=== PATIENT | female | born 1970 | race Two or more races ===

== ENCOUNTER 2023-06-04 22:03 | Emergency (ER) | payer OTHER, SELFPAY ==
[2023-06-04 22:10] VITALS: BP 144/77; PULSE 64; TEMP 36.8; O2SAT 100; BMI 42.8
--- NOTE | 2023-06-04 22:23 | ED.ABDPAIN1 ---
HPI - Abdominal Pain General Chief Complaint: Abdominal Pain Stated Complaint: ABD PAIN Time Seen by Provider: 06/04/23 22:17 Source: patient Mode of arrival: walk-in Limitations: no limitations History of Present Illness HPI narrative: 52-year-old female presents for right groin pain which wraps around to her flank area. It started about 5 hours ago while she was sitting. No injury or unusual activity. She is never had any pain like this before and it came on suddenly. No history of kidney stones. No constipation or diarrhea or fever. The pain is moderate to severe and continuous. Related Data Home Medications ?Medication ?Instructions ?Recorded ?Confirmed atorvastatin 20 mg tablet 20 mg PO DAILY 06/04/23 06/04/23 cyclobenzaprine 10 mg tablet 10 mg PO PRN sleep 06/04/23 ibuprofen 800 mg tablet 800 mg PO PRN pain 06/04/23 semaglutide 0.25 mg or 0.5 mg (2 mg subcut 06/04/23 mg/3 mL) subcutaneous pen injector (Ozempic) sitagliptin phosphate 50 1 tab PO BIDWM 06/04/23 06/04/23 mg-metformin 1,000 mg tablet (Janumet) Previous Rx's ?Medication ?Instructions ?Recorded hydrocodone 5 mg-acetaminophen 325 1 tab PO Q6H PRN pain #20 tabs 06/04/23 mg tablet ondansetron 4 mg disintegrating 4 mg PO Q6H PRN nausea and 06/04/23 tablet vomiting #20 tabs tamsulosin 0.4 mg capsule (Flomax) 0.4 mg PO DAILY #7 caps 06/04/23 Allergies Allergy/AdvReac Type Severity Reaction Status Date / Time No Known Drug Allergies Allergy Verified 06/04/23 22:10 Review of Systems ROS Narrative A ten point review of systems is negative except as noted above. Exam Narrative Exam Narrative: Nurses note and vital signs reviewed and patient is not hypoxic. General: The patient appears uncomfortable Skin: Warm, dry, no pallor noted. There is no rash noted. Head: Normocephalic, atraumatic Eye: Normal conjunctiva, no drainage Ears, Nose, Mouth, and Throat: oral mucosa is moist. Nares patent. Cardiovascular: Regular Rate and Rhythm Respiratory: Patient is in no distress, no accessory muscle use, lungs are clear to auscultation, no wheezing, rales or rhonchi Back: non-tender, no CVA tenderness bilaterally to percussion. GI: Soft and nondistended. Minimal tenderness in the right lower abdomen. Musculoskeletal: The patient has no evidence of calf tenderness, no pitting edema, symmetrical pulses noted bilaterally Neurological: A&O, normal speech Psychiatric: Cooperative Constitutional Vital Signs, click to edit/add: Last Vital Signs Temp 98.2 F 06/04/23 22:10 Pulse 64 06/04/23 22:10 Resp 18 06/04/23 22:10 BP 144/77 H 06/04/23 22:10 Pulse Ox 100 06/04/23 22:10 O2 Del Method Room Air 06/04/23 22:10 Course Vital Signs Vital signs: Vital Signs Temperature 98.2 F 06/04/23 22:10 Pulse Rate 64 06/04/23 22:10 Respiratory Rate 18 06/04/23 22:10 Blood Pressure 144/77 H 06/04/23 22:10 Pulse Oximetry 100 06/04/23 22:10 Oxygen Delivery Method Room Air 06/04/23 22:10 Temperature 98.2 F 06/04/23 22:10 Pulse Rate 64 06/04/23 22:10 Respiratory Rate 18 06/04/23 22:10 Blood Pressure 144/77 H 06/04/23 22:10 Pulse Oximetry 100 06/04/23 22:10 Oxygen Delivery Method Room Air 06/04/23 22:10 MDM - Abdominal Pain MDM Narrative Medical decision making narrative: CT scan shows a 4 mm kidney stone. It also shows an abnormality on her uterus, etiology uncertain. She is referred to gynecology for appropriate follow-up and family was instructed that she would need a follow-up ultrasound. She was given a urine strainer and prescribed [place] and Flomax and Zofran. Treatment diagnosis and follow-up were discussed thoroughly. Differential Diagnosis Differential diagnosis: Likely abdominal pain, acute appendicitis, calculus of kidney and constipation Lab Data Attestation: I reviewed the patient's lab results. Labs: Lab Results 06/04/23 Range/Units 22:20 WBC 8.5 (4.0-11.0) 10^3/uL RBC 4.34 (4.20-5.40) 10^6/uL Hgb 12.7 (12.0-16.0) g/dL Hct 39.0 (36.0-48.0) % MCV 89.9 (81.0-99.0) fL MCH 29.3 (26.7-34.0) pg MCHC 32.6 (29.9-35.2) g/dL RDW 13.8 (11.0-15.0) % Plt Count 274 (150-450) 10^3/uL MPV 11.2 (9.5-13.5) fL Neut % (Auto) 61.6 (43.0-75.0) % Lymph % (Auto) 29.5 (20.5-60.0) % Whitley % (Auto) 6.4 (1.7-12.0) % Eos % (Auto) 1.5 (0.9-7.0) % Baso % (Auto) 0.8 (0.2-2.0) % Neut # (Auto) 5.3 (1.4-6.5) 10^3/uL Lymph # (Auto) 2.5 (1.2-3.8) 10^3/uL Whitley # (Auto) 0.6 (0.3-0.8) 10^3/uL Eos # (Auto) 0.1 (0.0-0.7) 10^3/uL Baso # (Auto) 0.1 (0.0-0.1) 10^3/uL Abs Immat Gran (auto) 0.02 (0.00-0.03) 10^3/uL Imm/Tot Granulo (auto) 0.2 (0.0-0.5) % Sodium 140 (136-145) mmol/L Potassium 4.1 (3.5-5.1) mmol/L Chloride 105 (98-107) mmol/L Carbon Dioxide 23.1 (21.0-32.0) mmol/L Anion Gap 16.0 BUN 20.0 H (7.0-18.0) mg/dL Creatinine 0.74 (0.55-1.02) mg/dL Est GFR ( Amer) >60 (>=60) Est GFR (Non-Af Amer) >60 (>=60) BUN/Creatinine Ratio 27.0 Glucose 175 H (74-106) mg/dL Calcium 8.7 (8.5-10.1) mg/dL Urine Color Yellow (YELLOW) Urine Clarity Clear (CLEAR) Urine pH 5.5 (5.0-9.0) Ur Specific [place] >=1.030 A (1.005-1.025) Urine Protein Trace (NEG/TRACE) mg/dL Urine Glucose (UA) Negative (NEGATIVE) mg/dL Urine Ketones Negative (NEGATIVE) mg/dL Urine Occult Blood Large A (NEGATIVE) Urine Nitrite Negative (NEGATIVE) Urine Bilirubin Negative (NEGATIVE) Urine Urobilinogen 0.2 (0.2-1.0) EU/dL Ur Leukocyte Esterase Negative (NEGATIVE) Urine RBC 75-100 A (0-2) #/HPF Urine WBC 2-5 A (NONE SEEN) #/HPF Ur Squamous Epith Cells Moderate A (NONE/RARE) #/LPF Urine Crystals None seen (None Seen) #/HPF Amorphous Sediment Rare Urine Bacteria Trace A (NONE SEEN) #/HPF Urine Casts None seen (NONE SEEN) #/LPF Urine Mucus Small A (NONE SEEN) Urine Yeast Seen A (NONE SEEN) Ur Culture Indicated? Yes Imaging Data CT scan - abdomen: Radiologist's impression: ITS Impressions Abdomen/Pelvis CT 06/04/23 22:41 IMPRESSION: Mild right hydroureteronephrosis secondary to a 4 mm stone located at the right ureterovesical junction. A 6.4 x 5.3 cm oval solid mass at the right uterine wall/right adnexal region (image 116 series 3). Recommend pelvic sonogram and close Gynecology evaluation. Lobulated uterus is seen. Mild colonic diverticula without pericolonic inflammatory stranding. Cholelithiasis and/or biliary sludge. No evidence for acute appendicitis. The appendix is unremarkable. Electronically authenticated by: DUNG HARRIS Date: 06/04/2023 23:41 Discharge Plan Discharge Stand Alone Forms: Portal Instructions Chief Complaint: Abdominal Pain Clinical Impression: Kidney stone, Uterine mass Patient Disposition: Home, Self-Care Time of Disposition Decision: 23:58 Condition: Good Mode of Transportation: Private Vehicle Prescriptions / Home Meds: New hydrocodone-acetaminophen 5-325 mg tablet 1 tab PO Q6H PRN (Reason: pain) Qty: 20 0RF tamsulosin [Flomax] 0.4 mg capsule 0.4 mg PO DAILY Qty: 7 0RF ondansetron 4 mg tablet,disintegrating 4 mg PO Q6H PRN (Reason: nausea and vomiting) Qty: 20 0RF No Action cyclobenzaprine 10 mg tablet 10 mg PO PRN (Reason: sleep) atorvastatin 20 mg tablet 20 mg PO DAILY ibuprofen 800 mg tablet 800 mg PO PRN (Reason: pain) Janumet 50-1,000 mg tablet 1 tab PO BIDWM Ozempic 0.25 mg or 0.5 mg (2 mg/3 mL) pen injector SUBCUT Print Language: Turkish Instructions: Kidney Stones (ED), How to Strain Your Urine (ED) Additional Instructions: Follow-up with Dr. Lindo regarding the kidney stone Follow-up with Dr. Singh regarding the uterus Referrals: Constantino Singh DO [Physician] - 1 week Physician,Non-Staff, [Primary Care Provider] - 1 week Nathan Lindo MD [Physician] - 1 week
[2023-06-04 22:33] LABS: Basophils Absolute Auto 0.1 10^3/uL (0.0-0.1); Basophils Percent Auto 0.8 % (0.2-2.0); Bilirubin Urine NEGATIVE (NEGATIVE); Blood Urine LARGE (NEGATIVE); Clarity Urine CLEAR (CLEAR); Color Urine YELLOW (YELLOW); Eosinophils Absolute Auto 0.1 10^3/uL (0.0-0.7); Eosinophils Percent Auto 1.5 % (0.9-7.0); Glucose Urine UA NEGATIVE (NEGATIVE); Hemoglobin 12.7 g/dL (12.0-16.0); Immature Granulocytes Abs Auto 0.02 10^3/uL (0.00-0.03); Immature Granulocytes Pct Auto 0.2 % (0.0-0.5); Ketones Urine NEGATIVE (NEGATIVE); Leukocyte Esterase Urine NEGATIVE (NEGATIVE); Lymphocytes Absolute Auto 2.5 10^3/uL (1.2-3.8); Lymphocytes Percent Auto 29.5 % (20.5-60.0); Mean Corpuscular HGB Conc 32.6 g/dL (29.9-35.2); Mean Corpuscular Hemoglobin 29.3 pg (26.7-34.0); Mean Corpuscular Volume 89.9 fL (81.0-99.0); Mean Platelet Volume 11.2 fL (9.5-13.5); Monocytes Absolute Auto 0.6 10^3/uL (0.3-0.8); Monocytes Percent Auto 6.4 % (1.7-12.0); Neutrophils Absolute Auto 5.3 10^3/uL (1.4-6.5); Neutrophils Percent Auto 61.6 % (43.0-75.0); Nitrite Urine NEGATIVE (NEGATIVE); Platelet Count 274 10^3/uL (150-450); Protein Urine TRACE mg/dL (NEG/TRACE); Red Blood Count 4.34 10^6/uL (4.20-5.40); Red Cell Distribution Width 13.8 % (11.0-15.0); Specific Gravity Urine >=1.030 (1.005-1.025); Urobilinogen Urine 0.2 EU/dL (0.2-1.0); White Blood Count 8.5 10^3/uL (4.0-11.0); pH Urine 5.5 (5.0-9.0)
[2023-06-04] MEDS: MORPHINE SULFATE 4 MG/ML VIAL IV (22:37)
[2023-06-04] MEDS: ONDANSETRON PF 4 MG/2 ML VIAL IV (22:37)
--- NOTE | 2023-06-04 22:41 | CT_ITS ---
The [address] [address] Patient Name: KALEB PIPER MRN: [id number] date: 1970 Sex: F Assigned Patient Location: ER Current Patient Location: ER Accession/Order Number: [id number] Exam Date: 06/04/2023 22:50 Report Date: 06/04/2023 23:41 At the request of: JANELL DICKINSON Procedure: CT abdomen pelvis wo con EXAM: CT abdomen pelvis wo con HISTORY: Right abdominal pain radiating to the right flank, rule out stone some burning with urination COMPARISON: No comparison abdominal imaging available at the time of dictation. TECHNIQUE: Multiple axial views CT abdomen pelvis without IV contrast. Coronal sagittal reformats performed. FINDINGS: Visualized lung bases and cardiac apex are unremarkable. Mild hepatic steatosis and hepatomegaly. Multiple gallstones and/or biliary sludge. No hydropic gallbladder or pericholecystic fluid. Pancreas, spleen, adrenal glands, left kidney, and appendix are unremarkable by noncontrast exam. Mild right hydroureteronephrosis secondary to a 4 mm stone located at the right ureterovesical junction. Urinary bladder is underdistended. No perivesical stranding. A 6.4 x 5.3 cm oval solid mass at the right uterine wall/right adnexal region (image 116 series 3). Lobulated uterus. Mild colonic diverticula. No pericolonic inflammatory stranding. Moderate amount of stool within the right colon. Small hiatal hernia. Stomach is underdistended. No perigastric extraluminal free fluid/free air. No evidence for small bowel obstruction, large ascites, or free air. Mild amount of atherosclerotic calcifications scattered throughout the abdominal aorta. Multilevel lumbar disc degeneration with mild disc bulges at L3-L4 through L5-S1. Lower lumbar facet arthropathy. No severe bony canal narrowing. CT/CT abdomen pelvis wo con IMPRESSION: Mild right hydroureteronephrosis secondary to a 4 mm stone located at the right ureterovesical junction. A 6.4 x 5.3 cm oval solid mass at the right uterine wall/right adnexal region (image 116 series 3). Recommend pelvic sonogram and close Gynecology evaluation. Lobulated uterus is seen. Mild colonic diverticula without pericolonic inflammatory stranding. Cholelithiasis and/or biliary sludge. No evidence for acute appendicitis. The appendix is unremarkable. Electronically authenticated by: DUNG HARRIS Date: 06/04/2023 23:41
[2023-06-04 22:43] LABS: Bacteria Urine TRACE #/HPF (NONE SEEN); Crystals Seen? None Seen #/HPF (None Seen); Mucus Urine SMALL (NONE SEEN); RBC Urine 75-100 #/HPF (0-2); Squamous Epithelial Cell Urine MODERATE #/LPF (NONE/RARE)
[2023-06-04 22:44] LABS: Amorphous Sediment Urine RARE; Calcium 8.7 mg/dL (8.5-10.1); Carbon Dioxide 23.1 mmol/L (21.0-32.0); Cast Seen? NONE SEEN #/LPF (NONE SEEN); Chloride 105 mmol/L (98-107); Estimated GFR (African America >60 (>=60); Estimated GFR (Non-African Ame >60 (>=60); Glucose 175 mg/dL (74-106); Potassium 4.1 mmol/L (3.5-5.1); Sodium 140 mmol/L (136-145); Urine Culture Indicated YES
[2023-06-05] MEDS: HYDROCODONE/ACET 5-325 MG TABLET 1 TAB PO (00:19)
== END 2023-06-05 00:34 | disposition home or self-care (01) ==
PROVIDERS: Emergency Provider Emergency Medicine
DX: N20.0 Calculus of kidney (principal); N85.8 Other specified noninflammatory disorders of uterus; Z79.899 Other long term (current) drug therapy
CPT/HCPCS: 36415; 74176; 80048; 81001; 85025; 87086; 96374; 96375; 99284

== ENCOUNTER 2023-06-08 12:14 | Outpatient (OUT) | payer OTHER, SELFPAY ==
--- NOTE | 2023-06-08 12:21 | XR_ITS ---
The [address] [address] Patient Name: KALEB PIPER MRN: [id number] date: 1970 Sex: F Assigned Patient Location: [facility] Current Patient Location: Accession/Order Number: [id number] Exam Date: 06/08/2023 12:24 Report Date: 06/10/2023 04:57 At the request of: LIZET BLACK Procedure: XR abdomen 1V EXAMINATION: XR abdomen 1V HISTORY: kidney stone N20.0 COMPARISON: No relevant comparison available. FINDINGS: KIDNEY/URETER - RIGHT: No visible renal or ureteral calcifications. KIDNEY/URETER - LEFT: No visible renal or ureteral calcifications. PELVIS: No appreciable ureteral stones. Stable pelvic calcifications compatible with phleboliths. BOWEL: No abnormal dilation or deviation. BONES: No acute abnormality. OTHER: Negative. No abnormal gaseous collections. XR/XR abdomen 1V IMPRESSION: 1. No convincing urinary tract calculi. Suspect passage of previously seen distal right ureteral stone. Electronically authenticated by: GUZMAN AL Date: 06/10/2023 04:57
== END 2023-06-08 12:15 | disposition home or self-care (01) ==
LOC: RAD 12:16
PROVIDERS: Visit Provider Urology
DX: N20.0 Calculus of kidney (principal)
CPT/HCPCS: 74018

== ENCOUNTER 2023-06-29 12:58 | Outpatient (OUT) | payer OTHER, SELFPAY ==
--- NOTE | 2023-06-29 13:09 | XR_ITS ---
The [address] [address] Patient Name: KALEB PIPER MRN: [id number] date: 1970 Sex: F Assigned Patient Location: [facility] Current Patient Location: Accession/Order Number: [id number] Exam Date: 06/29/2023 13:10 Report Date: 06/30/2023 06:30 At the request of: LIZET BLACK Procedure: XR abdomen 1V EXAMINATION: XR abdomen 1V HISTORY: Kidney Stones N20.0 , right lower quadrant pain COMPARISON: XR abdomen 06/08/2023, CT abdomen pelvis 06/04/2023 FINDINGS: KIDNEY/URETER - RIGHT: No visible renal or ureteral calcifications. KIDNEY/URETER - LEFT: No visible renal or ureteral calcifications. PELVIS: No visible ureteral stones. Pelvic calcifications compatible with phleboliths. BOWEL: No abnormal dilation or deviation. BONES: No acute abnormality. OTHER: Negative. No abnormal gaseous collections. XR/XR abdomen 1V IMPRESSION: 1. No urinary tract calculi. Suspect passage of stone seen within distal right ureter on the prior CT study. Electronically authenticated by: GUZMAN AL Date: 06/30/2023 06:30
== END 2023-06-29 12:59 | disposition home or self-care (01) ==
LOC: RAD 13:00
PROVIDERS: Visit Provider Urology
DX: N20.0 Calculus of kidney (principal)
CPT/HCPCS: 74018

== ENCOUNTER 2023-07-24 08:59 | Outpatient (OUT) | payer OTHER, SELFPAY ==
[2023-07-24 09:17] LABS: Estimated GFR (African America >60 (>=60); Estimated GFR (Non-African Ame >60 (>=60)
--- NOTE | 2023-07-24 09:23 | XR_ITS ---
[address] [address] Patient Name: KALEB PIPER MRN: [id number] date: 1970 Sex: F Assigned Patient Location: LAB Current Patient Location: Accession/Order Number: [id number] Exam Date: 07/24/2023 10:00 Report Date: 07/25/2023 06:57 At the request of: LIZET BLACK Procedure: XR IVP w KUB EXAMINATION: XR IVP w KUB HISTORY: Ureteral Stone With Hydronephrosis N13.2 COMPARISON: XR abdomen 06/29/2023, 06/08/2023; CT abdomen pelvis 06/04/2023 TECHNIQUE: After obtaining patient consent a jukebox checker image was obtained followed by injection of 100cc of Omnipaque 300 IV contrast. Immediate nephrographic images were obtained. Corticomedullary and urographic phase images were obtained at 5, 10, 15 and 20 minutes. 15 minute oblique images were also obtained. FINDINGS: KIDNEY/URETER - RIGHT: No visible calcifications. KIDNEY/URETER - LEFT: No visible calcifications. PELVIS: No visible ureteral calcifications. Any visible calcifications favor phleboliths. NEPHROGRAPHIC PHASE: Normal, symmetric size, contour, and orientation. Normal and symmetric time of contrast uptake. CORTICOMEDULLARY: No mass or abnormal appearing medulla, pyramids, or collecting system. UROGRAPHIC PHASE: Normal caliber, course, and number of ureters. BLADDER: Significant descent of the urinary bladder/prolapse into the vaginal canal extending approximately 5.6 cm below the expected floor of the bladder. No appreciable stones or mass within the bladder. BOWEL: No abnormal dilation or deviation. BONES: No acute abnormality. OTHER: Negative. No abnormal gaseous collections. XR/XR IVP w KUB IMPRESSION: 1. Marked urinary bladder prolapse. 2. No appreciable urinary tract calculi or obstructive uropathy. Electronically authenticated by: GUZMAN AL Date: 07/25/2023 06:57
== END 2023-07-24 09:00 | disposition home or self-care (01) ==
PROVIDERS: Visit Provider Urology
DX: N13.2 Hydronephrosis with renal and ureteral calculous obstruction (principal)
CPT/HCPCS: 36415; 74400; 82565; Q9967

== ENCOUNTER 2024-09-04 10:12 | Outpatient (OUT) | payer OTHER, SELFPAY ==
--- OUTSIDE RECORDS SUMMARY | 2023-10-18 11:45 | XMS_ITS ---
Author Organization [facility] Address [address] [facility] [place] [address] Care Team Providers Care Income Tax Adjuster Name Role Phone Regine Nunez Primary Care Provider Yoko Mcneal Unavailable REASON FOR VISIT 3 MONTH F/U;DM A1C Encounters Encounter Location Date Provider Diagnosis [facility] [address] [place] [address] 10/18/2023 Yoko Mcneal Plan Of Treatment No Information Progress Notes * KALEB PIPER IDOB:[birth year] (54 yo F)Acc No.[id number]:10/18/2023 Progress Notes Patient: Petey MADRIGAL KALEB Olivas Appointment Provider: Roxana Mcneal NP :1970 A ge:53 Y S ex:Female Date:10/18/2023 Address:[address] [facility] Pcp:Regine Nunez Subjective: * Chief Complaints: * 1 . 3 MONTH F/U;DM A1C. * Medical History: Objective: * Vitals: Assessment: Plan: * Treatment: * Images: * Electronic signature of Lisa Mcneal CNP on 09/04/2024 at 10:18 AM EDT Sign off status: Pending * Appointment Provider: Roxana Mcneal NP Date: 10/18/2023 Generated for Printing/Faxing/eTransmitting on: 09/04/2024 10:18 AM EDT
--- OUTSIDE RECORDS SUMMARY | 2024-01-08 03:30 | XMS_ITS ---
Author Organization [facility] Address [address] [place] [id number] Care Team Providers Care Licensed Veterinary Technician Name Role Phone Yoko Mcneal Primary Care Provider Jessica Troy [phone] REASON FOR VISIT Wellness Encounters Encounter Location Date Provider Diagnosis Main [address] [place] [id number] 01/08/2024 Jessica Troy Plan Of Treatment Next Appt Details Provider Name:Yoko bush, 11/14/2024 02:15:00 PM, [address] [place], [id number], Progress Notes * Nichelle PIPERDOB:1970 (54 yo F)Acc No.[id number]:01/08/2024 Medical Note Patient: Nichelle ESPINAL Provider: Brando Troy :1970 A ge:53 Y S ex:Female Date:01/08/2024 Address:[address] [facility] Pcp:Yoko Mcneal Subjective: * Chief Complaints: * 1 . Wellness. * Medical History: Objective: * Vitals: Assessment: Plan: * Treatment: * Billing Information: * Visit Code: * Procedure Codes: * Electronic signature of JHONNY Hallman sa on 09/04/2024 at 10:17 AM EDT Sign off status: Pending * Provider: Brando Troy Date: 03/09/2023 Generated for Nathaniel rojas/Nan/Khanhitting on: 0 09/04/2024 10:17 AM EDT
--- NOTE | 2024-09-04 | XR_ITS ---
The [address] [address] Patient Name: KALEB PIPER MRN: [id number] date: 1970 Sex: F Assigned Patient Location: [facility] Current Patient Location: [facility] Accession/Order Number: [id number] Exam Date: 09/04/2024 11:07 Report Date: 09/04/2024 11:12 At the request of: LIZET BLACK MD Procedure: XR abdomen 1V SINGLE VIEW ABDOMEN COMPARISON: 06/29/2023, IVP 07/24/[address] 06/04/2023 CLINICAL DATA: Follow-up of kidney stones. Supine views of the abdomen and pelvis were obtained. There is air and stool within the colon. There is no dilated small bowel. Both kidneys are partially obscured. There is a punctate calcification in the left paraspinal region at the L2-3 level. This is believed to be outside the kidney based on the previous imaging. No other suspected renal, ureteral or bladder stones are seen. There are similar pelvic phleboliths. No soft tissue masses are noted. Degenerative changes are present at the spine and SI joints. XR/XR abdomen 1V IMPRESSION: NO DEFINITE RADIOPAQUE STONES. Impression dictated by: Mary Rivera M.D. 09/04/2024 11:12 AM Dictation Location: [place] [address] Electronically authenticated by: [id number] Y Date: 09/04/2024 11:12
--- OUTSIDE RECORDS SUMMARY | 2024-09-04 10:18 | XMS_ITS | Patient Health Record ---
Author Organization [facility] Address [address] [place] [address] Care Team Providers Care Invoice Checker Name Role Phone Regine Nunez Primary Care Provider [phone] Yoko Mcneal Unavailable Allergies No Known Allergies Reason For Referral No Information Medications Medication SIG (Take, Route, Frequency, Duration) Notes Start Date End Date Status Janumet 50-1000 MG TAKE 1 TABLET BY MOUTH TWO TIMES A DAY WITH MEALS; Duration: 90 days Active Atorvastatin Calcium 20 MG 1 tablet Orally Once a day; Duration: 90 day(s) Active Blood Glucose Meter as directed *whatever br and is covered by insurance 09/28/2022 Active Blood Glucose Test - as directed In Vitro once a day; Duration: 90 days *whatever brand is covered by insurance 09/28/2022 Active Lancets - as directed once a day; Duration: 90 days *whatever brand is covered by insurance 09/28/2022 Active Immunizations Vaccine Route Administration Date Status Comme nts Influenza 3+ PRIVATE IM Intramuscular 12/23/2021 Administered Influenza 3+ PRIVATE IM Intramuscular 01/04/2023 Administered PREVNAR 13- Adult (Private stock) IM Intramuscular 01/25/2016 Administered zzz IM Intramuscular 12/10/2014 Administered zzz do not use FLUARIX 3 YRS AND OLDER Adult IM Intramuscular 01/25/2016 Administered Pt declined 20 minute wait time Social History Tobacco Use: Social History Observation Description Date Details (start date - stop date) Never Smoker NA - NA Tobacco Screen: Question Answer Notes Are you a: never smoker Sexual Hx: Question Answer Notes Had sex in the last 12 months (vaginal, oral, or anal)? Yes with Men only Use protection? No Have you ever had an STD? No LMP: 06/2018 Alcohol Screening: Question Answer Notes Did you have a drink containing alcohol in the p ast year? No Points 0 Interpretation Negative AUDIT-C (Standard) Question Answer Notes Did you have a drink containing alcohol in the p ast year? No Points 0 Interpretation Negative Tobacco Control (Standard) Question Answer Notes Tobacco use: Nonsmoker Section Notes: Denies smoking, ETOH, or gary gs. Denies smoking, ETOH, or gary gs. Denies smoking, ETOH, or gary gs. Denies smoking, ETOH, or gary gs. Denies smoking, ETOH, or gary gs. Denies smoking, ETOH, or gary gs. Denies smoking, ETOH, or gary gs. Denies smoking, ETOH, or gary gs. Denies smoking, ETOH, or gary gs. Denies smoking, ETOH, or gary gs. Denies smoking, ETOH, or gary gs. Denies smoking, ETOH, or gary gs. Denies smoking, ETOH, or gary gs. Denies smoking, ETOH, or gary gs. Denies smoking, ETOH, or gary gs. Denies smoking, ETOH, or gary gs. Denies smoking, ETOH, or gary gs. Denies smoking, ETOH, or gary gs. Denies smoking, ETOH, or gary gs. Denies smoking, ETOH, or gary gs. Denies smoking, ETOH, or gary gs. Denies smoking, ETOH, or gary gs. Denies smoking, ETOH, or gary gs. Denies smoking, ETOH, or gary gs. Denies smoking, ETOH, or gary gs. Denies smoking, ETOH, or gary gs. Denies smoking, ETOH, or gary gs. Denies smoking, ETOH, or gary gs. Denies smoking, ETOH, or gary gs. Denies smoking, ETOH, or gary gs. Problems Problem Type SNOMED Code ICD Code Onset Dates Problem Status W/U Status Risk Notes Problem Hyperlipidemia (77295956) Hyperlipidemia (E78.5) Active confirmed Problem Diabetes mellitus type 2 (46995093) Diabetes mellitus type 2, uncontrolled (E11.65) Active confirmed Problem Urinary incontinence (951465032) Urinary incontinence (R32) Active confirmed Problem Hot flashes (795297679) Hot flashes (N95.1) Active confirmed Problem Tension headache (176440692) Tension headache (G44.209) Active confirmed Problem Abnormal vaginal bleeding (689917911) Abnormal vaginal bleeding (N93.9) Active confirmed Plan Of Treatment No Information Insurance Providers Payer Name Payer Address Payer Phone Subscriber Number Group Number Insured Name Patient Relationship to Insured Coverage Start Date Coverage End Date [facility] [address] [place] [id number] KALEB PIPER Self - patient is the insured 2 Medical (General) History Medical History History ICD Code LEVEL 3 DM II allergies hyperlipidemia
--- OUTSIDE RECORDS SUMMARY | 2024-09-04 10:18 | XMS_ITS | Clinical Summary ---
Author Organization [facility] Healthcare Address [address] [facility] [address] [place] [place] [address] Care Team Providers Care Lacing Cutter Name Role Phone Unallocated, Noms Provider Primary Care Provi glenna Allergies No known active allergies Medications Ozempic, 1 MG/DOSE, 4 MG/3ML solution pen-injector Inject 1ML subcutaneously once a week 09/25/19 24 Active ibuprofen 800 MG tablet TAKE 1 TABLET BY MOUTH 3 TIMES A DAY NEEDED. TAKE WITH FOOD OR MILK. 09/06/19 24 Active oxybutynin XL (Ditropan-XL) 10 MG 24 hr tabletIndication s:Stress incontinence Take 1 tablet (10 mg) by mouth Daily Do not crush, chew, or split. 60 tablet 5 06/13/19 25 026 Active Active Problems Problem Noted Date Diagnosed Date Adenomyosis 12/13/2023 Thickened endometrium 12/13/2023 Encounters Date Type Department Care Team Description 07/24/2024 2:30 PM EDT Ancillary Procedure [facility] [address] [place] [id number] Screening mammogram, encounter for 07/24/2024 Travel 06/16/2024 Results Follow-Up [facility] [address] [place] [address] Marli Claire MD 06/12/2024 10:45 AM EDT Office Visit [facility] [address] [place] [address] Marli Claire MD Screening mammogram, encounter for (Primary Dx); Encounter for gynecological examination without abnormal finding; Encounter for screening for cervical cancer; HPV in female; Stress incontinence 06/12/2024 Travel from Last 3 Months Immunizations Immunization Administration Dates Next Due Influenza, injectable, quadrivalent 01/04/2023,1 Influenza, injectable, quadrivalent, preservativ e free 12/21/2017 Family History Medical History Relation Name Comments Alzheimer's disease Mother Relation Name Status Comments Father Mother Social History Tobacco Use Types Packs/Day Years Used Date Smoking Tobacco: Never Smokeless Tobacco: Never Tobacco Cessation:Counseling Given: Not Answered Alcohol Use Standard Drinks/Week Comments Not Currently 0 (1 standard drink = 0.6 oz pur e alcohol) AUDIT-C Answer Date Recorded Q1: How often do you have a drink containing alcohol? Never 06/08/2023 Q2: How many drinks containi ng alcohol do you have on a typical day when you are drinking? Patient does not drink Q3: How often do you have si x or more drinks on one occasion? Never 06/08/2023 PHQ-2 Answer Date Recorded Patient Health Questionnaire-2 Score 0 12/13/2023 Comments No Sex and Gender Information Value Date Recorded Sex Assigned at Not on file Legal Sex Female 11:07 PM EDT Gender Identity Not on file Sexual Orientation Not on file Last Filed Vital Signs Vital Sign Reading Time Taken Comments Blood Pressure 122/78 06/12/2024 10:46 AM EDT Pulse - - Temperature - - Respiratory Rate - - Oxygen Saturation - - Inhaled Oxygen Concentration - - Weight 96.6 kg (213 lb) 06/12/2024 10:46 AM EDT Height 146.1 cm (4' 9.5 ) 05/13/2021 12:00 PM ES T Body Mass Index 45.29 05/13/2021 12:00 PM EST Plan of Treatment Upcoming Encounters Date Type Department Care Team (Late st Contact Info) Description 12/12/2024 10:00 AM EDT Office Visit [facility] [address] [facility] [address] [place] [phone] Marli Claire MD [address] [facility] [address] [place] [address] Health Maintenance Due Date Last Done Comments CT Colonography 1969 FIT-DNA 1969 FIT 1969 FOBT 1969 Sigmoidoscopy 1969 Influenza Vaccine (Season Ended) 2024 01/04/2023, 12/23/2021, 12/21/2017 Mammogram 07/24/2025 07/24/2024, 051 06/2023, 04/13/2021 Pap Smear 06/07/2026 06/08/2023 Cervical Cancer Screening 06/12/2029 HPV/Cotest 06/12/2029 06/12/2024, 04/0 06/2023, 04/06/2021 Colonoscopy 06/23/2031 06/22/2021 Colorectal Cancer Screening 06/23/2031 Procedures Procedure Name Priority Date/Time Associated Diagnosis Comments BI MAMMOGRAM SCREENING TOMOSYNTHESIS BILATERAL Routine 07/24/2024 2:40 PM EDT Screening mammogram, encounter for IGP, APT HPV,RFX 16/18,45 Routine 06/12/2024 12:00 AM EDT Encounter for gynecological examination without abnormal finding Encounter for screening for cervical cancer THINPREP TIS PAP AND HPV MRNA E6/E7 Routine 06/08/2023 3:38 PM EDT Screening for malignant neoplasm of cervix Encounter for gynecological examination without abnormal finding from Last 3 Months or Most Recently Relevant to Health Maintenance Results * Bilateral screening mammogram with tomosynthesis (07/24/2024 2:40 PM EDT) Anatomical Region Laterality Modality Breast Bilateral Mammography 07/24/2024 3:32 PM EDT Impressions 07/24/2024 3:42 PM EDT Impression: No specific evidence of malignancy seen in either breast. BIRADS 2 - Benign Findings DENSITY: There are scattered areas of fibroglandular density. FOLLOW-UP: Routine Screening Mammogram ELECTRONICALLY SIGNED BY: Irene Franco 07/24/2024 3:42 PM EDT Examination: BI MAMMOGRAM SCREENING TOMOSYNTHESIS BILATERAL Clinical History: Screening Technique: Screening digital mammography study of both breasts was performed with 2-D and 3-D tomosynthesis imaging. Study was compared to the prior exam dated 07/18/2023. Findings: There is no evidence of interval dominant spiculated mass, grouped microcalcifications, or skin thickening which would be suggestive of malignancy. Benign-appearing asymmetric densities including partially calcified densities bilaterally, similar to the prior study. Interval benign calcification of a small otherwise similar benign-appearing asymmetric density on the right likely representing degenerating fibroadenoma. Interval density with benign-appearing calcifications overlying the right axillary region on the MLO view likely representing degenerating fibroadenoma or other benign process. Likely a few degenerating fibroadenomas on the left. Axillary lymph nodes including partially visualized lymph nodes are on the right, grossly unremarkable in appearance. Procedure Note Ronal Rodriguez MD - 07/24/2024 Examination: BI MAMMOGRAM SCREENING TOMOSYNTHESIS BILATERAL Clinical History: Screening Technique: Screening digital mammography study of both breasts wasperformed with 2-D and 3-D tomosynthesis imaging. Study was compared tothe prior exam dated 07/18/2023. Findings: There is no evidence of interval dominant spiculated mass,grouped microcalcifications, or skin thickening which would be suggestiveof malignancy. Benign-appearing asymmetric densities including partially calcifieddensities bilaterally, similar to the prior study. Interval benigncalcification of a small otherwise similar benign-appearing asymmetricdensity on the right likely representing degenerating fibroadenoma.Interval density with benign-appearing calcifications overlying the rightaxillary region on the MLO view likely representing degeneratingfibroadenoma or other benign process. Likely a few degeneratingfibroadenomas on the left. Axillary lymph nodes including partiallyvisualized lymph nodes are on the right, grossly unremarkable inappearance. IMPRESSION: Impression: No specific evidence of malignancy seen in either breast. BIRADS 2 - Benign Findings DENSITY: There are scattered areas of fibroglandular density. FOLLOW-UP: Routine Screening Mammogram ELECTRONICALLY SIGNED BY: Ronal Rodriguez M.D. Marli Claire MD IMG BI PROCEDURES Final Result * IGP, APT HPV,RFX 16/18,45 (06/12/2024 12:00 AM EDT) Diagnosis: Comment [facility] Comment:NEGATIVE FOR INTRAEP ITHELIAL LESION OR MALIGNANCY. Specimen Adequacy: Comment [facility] Comment: Satisfactory for evaluation. Endocervical and/or squamous metaplastic cells (endocervical component) are present. Clinician Provided ICD10: Comment [facility] Comment: Z01.419 Z12.4 Performed By: Comment [facility] Comment:Delicia stoddard, Yoghurt Maker (ASCP) Cyto Comments . [facility] Note: Comment [facility] Comment: The Pap smear is a screening test designed to aid in the detection of premalignant and malignant conditions of the uterine cervix. It is not a diagnostic procedure and should not be used as the sole means of detecting cervical cancer. Both false-positive and false-negative reports do occur. Test Methodology: Comment [facility] Comment: This liquid based ThinPrep(R) pap test was screened with the use of an image guided system. HPV Aptima Negative Negative [facility] Comment: This nucleic acid amplification test detects fourteen high-risk HPV types (16,18,31,33,35,39,45,51,52,56,58,59,66,68) without differentiation. Vaginal Fluid 06/12/2024 06/13/2024 Narrative [facility] - 06/15/2024 8:07 AM EDT Performed at: - [address] [id number] Manager Strategic Partnerships: Eleonora Gruber MD, Phone: [phone] Performed at: - [address] [id number] Manager Strategic Partnerships: Eleonora Gruber MD, Phone: [phone] Specimen Comment: No. of containers..01 ThinPrep Vial us Marli Claier MD LAB BLOOD ORDERABLES Final Res ult [facility] * (ABNORMAL) THINPREP TIS PAP AND HPV MRNA E6/E7 (06/08/2023 3:38 PM EDT) CLINICAL INFORMATION [facility] Comment:None given LMP [facility] Comment:NONE GIVEN PREV. PAP [facility] Comment:NONE GIVEN PREV. BX [facility] Comment:NONE GIVEN SOURCE [facility] Comment:None given STATEMENT OF ADEQUACY [facility] Comment: Satisfactory for evaluation. Endocervical/transformation zone component absent. INTERPRETATION/RESUL T [facility] Comment: Cytology Results: Negative for intraepithelial lesion or malignancy. COMMENT [facility] Comment: This Pap test has been evaluated with computer assisted technology. MUD ANALYSIS OPERATOR [facility] Comment: BH, CT(ASCP) CT screening location: [email or web address] [address]. REVIEW MUD ANALYSIS OPERATOR [facility] Comment: PCJ, SCT(ASCP) CT screening location: [email or web address] [address]. (ALWAYS MESSAGE) [facility] Comment: EXPLANATORY NOTE: The Pap is a screening test for cervical cancer. It is not a diagnostic test and is subject to false negative and false positive results. It is most reliable when a satisfactory sample, regularly obtained, is submitted with relevant clinical findings and history, and when the Pap result is evaluated along with historic and current clinical information. HPV MRNA E6/E7 Detected (A) Not Detected [facility] Comment: Methodology: X Ray Technician-Mediated Amplification This assay detects E6/E7 viral messenger RNA (mRNA) from 14 high-risk HPV types (16,18,31,33,35,39,45,51,52,56,58,59,66,68). Cervical sources are required for HPV testing. If a vaginal source from a patient who has had a total hysterectomy with removal of cervix was submitted, please contact the testing laboratory for alternative testing options. For additional information, please refer to [email or web address].Youth Noise/faq/GRM084k9 (This link if provided for information/ educational purposes only.) Swab 06/08/2023 3:38 PM EDT 06/09/2023 3:13 AM EDT Narrative Resulting Agency Comment Performing Organization Information Site ID: [id number] Name: [email or web address] Address: [address] [place] [address], [address] [place] [phone] Director: Armando Pate MD Marli Claire MD LAB CYTOLOGY ORDERABLES Final Result [facility] from Last 3 Months or Most Recently Relevant to Health Maintenance Insurance [facility] Address: [address] [place] [address] [facility] Care Teams Lacing Cutter Relationship Specialty Start Date End Date Unallocated, Noms Provider, [address] [place], [place] [id number] PCP - General Family Medicine 06/08/23
--- OUTSIDE RECORDS SUMMARY | 2024-09-04 10:18 | XMS_ITS | Patient Health Record ---
Author Organization [facility] Address [address] [place] [id number] Care Team Providers Care Color Drum Worker Name Role Phone Yoko Mcneal Primary Care Provider [phone] Jessica Troy Unavailable [phone] Allergies No Known Allergies Results Component Value Reference Range Notes POCT A1C Reviewed date:05/06/2024 10:01:01 AM Interpretation: Performing Lab: Notes/Report: Result 10.2 0-5.6 % UDS Mammogram Reviewed date:08/12/2024 02:10:46 PM Interpretation: Performing Lab: Notes/Report: POCT A1C Reviewed date:08/08/2024 01:21:52 PM Interpretation: Performing Lab: Notes/Report: Result 10.1 0-5.6 % Reason For Referral No Information Medications Medication SIG (Take, Route, Frequency, Duration) Notes Start Date End Date Status Atorvastatin Calcium 40 MG 1 tablet Oral ly Once a day for 90 days Active Ibuprofen 800 MG 1 tablet with food o r milk as needed Orally every 8 hrs for 30 days Active Farxiga 10 MG 1 tablet Orally Once a day for 90 days 08/08/2024 Active Ozempic (1 MG/DOSE) 4 MG/3ML 1 mg Subcutaneous once a week for 90 days Active Social History Tobacco Use: Social History Observation Description Date Details (start date - stop date) Never Smoker NA - NA CAGE-AID Questionnaire (2018 Edition) Question Answer Notes Have you ever felt that you ought to cut down on your drinking or drug use? No Have people annoyed you by criticizing your drin tommy or drug use? No Have you ever felt bad or guilty about your drin tommy or drug use? No Have you ever had a drink or used drugs first thing in the morning to steady your nerves or to get rid of a hangover? No CAGE-AID Score 0 Interpretation Negative PRAPARE Question Answer Notes What is your current housing situation? I have h ousing Are you worried about losing your housing? I cho ose not to answer this question What is the highest level of school that you have finished? 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 Check all that apply Food,Utilities,Medicine or any health care (medical, dental, mental health or vision),Phone Has lack of transportation k ept you from medical appointments, meetings, work or from getting things needed for daily living? No How often do you see or talk to people that you care about and feel close to? (For example: talking to friends on the phone, visiting friends or family, going to confucianism or club meetings) Less than once a week How stressed are you? Stress is when someone feels tense, nervous, anxious, or can't sleep at night because their mind is troubled A little bit In the past year have you sp ent more than 2 nights in a row in a usp, nursing home, skilled nursing center, or juvenile correctional facility? No Are you a refugee? No What country are you from? [place] Do you feel physically and e motionally safe where you currently live? Yes In the past year, have you b een afraid of your partner or ex-partner? No PRAPARE Score: 11 Tobacco Control (Standard) Question Answer Notes Tobacco use: Nonsmoker Section Notes: Clover Metcalf 05/06/2024 10 :10:03 AM EST > Problems Problem Type SNOMED Code ICD Code Onset Dates Problem Status W/U Status Risk Notes Problem 400218651 Mixed hyperlipidemia (E78.2) Active confirmed Problem 89574142 Type 2 diabetes mellitus without complication, without long-term current use of insulin (E11.9) Active confirmed Problem 742809381 Obesity, morbid, BMI 40.0-49.9 (E66.01) Active confirmed Problem 093381318 BMI 40.0-44.9, adult (Z68.41) Active confirmed Vital Signs Heart Rate 71 /min 08/08/2024 Sisi Tanya 08/08/2024 01:15:00 PM EDT > Temperature 98.6 degrees Fahrenheit 08/08/2024 Tanya Hollis 08/08/2024 01:15:00 PM EDT > Respiratory Rate 20 /min 08/08/2024 Tyrone Laird icimeme 08/08/2024 01:15:00 PM EDT > Height-cm 152.4 cm 08/08/2024 Tanya Laird 08/08/2024 01:15:00 PM EDT > Oximetry 98 % 08/08/2024 Kelvin Lairdcia 08/08/2024 01:15:00 PM EDT > Blood pressure diastolic 85 mm Hg 08/08/2024 Tanya Taylor 08/08/2024 01:15:00 PM EDT > Weight-kg 95.12 kg 08/08/2024 Tanya Laird 08/08/2024 01:15:00 PM EDT > Height 60 in 08/08/2024 Tanya Laird 08/08/2024 01:15:00 PM EDT > Blood pressure systolic 139 mm Hg 08/08/2024 Tanya Hollis 08/08/2024 01:15:00 PM EDT > Weight 209.7 lbs 08/08/2024 Kelvin Lairdcia 08/08/2024 01:15:00 PM EDT > BMI 40.95 kg/m2 08/08/2024 Tanya Laird 08/08/2024 01:15:00 PM EDT > Encounters Encounter Location Date Provider Diagnosis Main [address] [id number] 05/06/2024 Yoko Mcneal Type 2 diabetes brendan itus without complication, without long-term current use of insulin E11.9 ; Mixed hyperlipidemia E78.2 ; BMI 40.0-44.9, adult Z68.41 and Obesity, morbid, BMI 40.0-49.9 E66.01 Main [address] [id number] 08/08/2024 Yoko Mcneal Type 2 diabetes brendan itus without complication, without long-term current use of insulin E11.9 ; Mixed hyperlipidemia E78.2 ; BMI 40.0-44.9, adult Z68.41 and Obesity, morbid, BMI 40.0-49.9 E66.01 Main [address], [place] [id number] 05/06/2024 Yoko Mcneal [address] [id number] 06/11/2024 Yoko Mcneal [address] [id number] 08/08/2024 Yoko Mcneal Assessments Encounter Date Diagnosis (ICD Code) Assessment Notes Treatment Notes Treatment Clinical Notes Section Notes 05/06/2024 Mixed hyperlipidemia (ICD-10 - E78.2) Pt is stable on current medications. Will continue current medications. F/u 3 months & PRN 05/06/2024 Type 2 diabetes mellitus without complication, without long-term current use of insulin (ICD-10 - E11.9) Will continue ozempic. Will add jardiance to help with BS control. Encouraged healthy diet and exercise. F/u 3 months & PRN 08/08/2024 Type 2 diabetes mellitus without complication, without long-term current use of insulin (ICD-10 - E11.9) Will add farxiga. Will continue other medications. Encouraged healthy diet and exercise. Will order routine blood work. F/u 3 months & PRN 05/06/2024 BMI 40.0-44.9, adult (ICD-10 - Z68.41) Body Mass Index: Care Instructions material was published 08/08/2024 Mixed hyperlipidemia (ICD-10 - E78.2) Pt is stable on current medications. Will continue current medications. F/u 3 months & PRN 05/06/2024 Obesity, morbid, BMI 40.0-49.9 (ICD-10 - E66.01) 08/08/2024 BMI 40.0-44.9, adult (ICD-10 - Z68.41) Body Mass Index: Care Instructions material was published 08/08/2024 Obesity, morbid, BMI 40.0-49.9 (ICD-10 - E66.01) Plan Of Treatment Pending Test Test Name Order Date THYROID PROFILE III 08/08/2024 LIPID PANEL WITH REFLEX TO DIRECT LDL MICROALBUMIN RANDOM SPEC 08/08/2024 COMPREHENSIVE METABOLIC PANEL WITH GFR 0 08/08/2024 Next Appt Details Provider Name:Yoko bush, 11/14/2024 02:15:00 PM, [address] [place], [id number], Insurance Providers Payer Name Payer Address Payer Phone Subscriber Number Group Number Insured Name Patient Relationship to Insured Coverage Start Date Coverage End Date [facility] [address] [place] [id number] [address] Shepherd [id number] Nichelle Moody Self - patient is the insured 4 Medical (General) History Medical History History ICD Code DM Hyperlipidemia Hospitalization History Reason Date(Month/Year) kidney stones 2023
--- OUTSIDE RECORDS SUMMARY | 2024-09-04 13:01 | XMS_ITS | CCD ---
Author Organization [facility] Inform ion Partnership [facility] Care Team Providers Care Senior Javascript Developer Name Role Phone NONE, XXXX Primary Care Physician Unavailab SVEN Williamson Consulting [facility]available [facility] Primary [facility] Unavailable AMPARO BARRERA Attending Unavailable AMPARO BARRERA Admitting Unavailable Fritz Singh Unavailable MD David Allan Attending Provider Silas Friedman Unavailable Nita Weber Unavailable MERY Mcneal Attending Provider Yoko Mcneal Attending Unavailab Yoko Fu Admitting Unavailab [place] MD Provider Primary Care Provi glenna Nathan BLACK Attending Unavailable Nathan BLACK Attending Unavailable LEV WHITE Attending Unavailable LEV WHITE Referring Unavailable LEV WHITE Attending Unavailable LEV WHITE Attending Unavailable Medications Current Medications Medication Drug Class(es) Dates Sig (Normalized) Sig (Original) 0.25 MG, 0.5 MG Dose 3 ML semaglutide 0.68 MG/ML Pen Injector [Ozempic] (3 sources) Start: 06-09-2023 Ozempic 2 mg/3 mL (0.25 mg or 0.5 mg dose) subcutaneous solution Refills(s) 0 Start Date: 06/09/23 Status: Ordered atorvastatin 10 mg oral tablet (8 sources) HMG-CoA Reductase Inhibitor Start: 06-04-2021 take 10 mg by mouth once daily at bedtime Atorvastatin Active 10 MG PO Daily at bedtime June 04, 2021 12:00am Start: 03-29-2019 atorvastatin O ral, Daily, Refills(s) 0 Start Date: 03/29/19 Status: Ordered Atorvastatin Ashutosh cium Active take 1 tablet by gia th every twenty-four hours Atorvastatin Calcium 40 MG 1 tablet Orally Once a day Active benzonatate 200 mg oral capsule (1 source) Non-narcotic Antitussive Start: 01-05-2022 take 1 capsule by mouth three times daily as needed for cough Benzonatate 200 MG 1 capsule Orally Three times a day as needed for cough for 7 day(s) Jan, Active ciprofloxacin 500 mg oral tablet (1 source) Quinolone Antimicrobial Start: 07-05-2021 Cipro 500 mg Tab 500 mg = 1 tab(s), Oral, As Directed, # 2 tab(s), Refills(s) 0, Pharmacy: [id number], 129, cm, 07/05/21 14:49:00 EDT, Height/Length Dosing, 95.8, kg, 07/05/21 14:49:00 EDT, Weight Dosing Start Date: 07/05/21 Status: Ordered clindamycin 300 mg oral capsule (1 source) Lincosamide Antibacterial Start: 04-20-2022 take 1 capsule by mouth every eight hours Clindamycin HCl 300 MG 1 cap(s) Orally three times a day for 10 day(s) Apr, Active cyclobenzaprine hydrochloride 10 mg oral tablet (3 sources) Muscle Relaxant Start: 06-09-2023 cyclobenzaprine 10 mg Tab Refills(s) 0 Start Date: 06/09/23 Status: Ordered empagliflozin (1 source) Sodium-Glucose Cotransporter 2 Inhibitor Jardiance Active fluticasone propionate 0.05 mg/actuat metered dose nasal spray (1 source) Corticosteroid Start: 01-05-2022 take 1 spray(s) nasal route twice daily Fluticasone Propionate 50 MCG/ACT 1 spray in each nostril Nasally Twice a day for 14 days Jan, Active ibuprofen 800 mg oral tablet (9 sources) Nonsteroidal Anti-inflammatory Drug Start: 09-06-2023 take 1 tablet by mouth three times daily as needed ibuprofen 800 MG tablet TAKE 1 TABLET BY MOUTH 3 TIMES A DAY NEEDED. TAKE WITH FOOD OR MILK. 09/06/2023 Active Start: 03-29-2019 ibuprofen Refi lls(s) 0 Start Date: 03/29/19 Status: Ordered Ibuprofen Active ketorolac tromethamine 10 mg oral tablet (1 source) Nonsteroidal Anti-inflammatory Drug, Cyclooxygenase Inhibitor Start: 06-09-2023 take 1 tablet by mouth every twelve hours as needed for pain ketorolac 10 mg Tab 10 mg = 1 tab(s), Oral, q12hr, PRN for pain, # 20 tab(s), Refills(s) 0, Pharmacy: [id number], 129, cm, 06/09/23 8:24:00 EDT, Height/Length Dosing, 95.8, kg, 06/09/23 8:24:00 EDT, Weight Dosing Start Date: 06/09/23 Status: Ordered metFORMIN hydrochloride 1000 mg / SITagliptin 50 mg oral tablet (7 sources) Biguanide, Dipeptidyl Peptidase 4 Inhibitor Start: 05-27-2020 Janumet 50 mg/1000 mg oral tablet 1 tab(s), Oral, BID, 60 tab(s), Refill(s) 0 Start Date: 05/27/20 Status: Ordered take 1 tablet by mouth every twe lve hours Janumet 50-500 MG 1 tablet with meals Orally Twice a day Active 24 hr oxybutynin chloride 10 mg extended release oral tablet (2 sources) Cholinergic Muscarinic Antagonist Start: 06-12-2024 End: 06-12-2025 take 1 tablet by mouth once daily oxybutynin XL (Ditropan-XL) 10 MG 24 hr tablet Indications: Stress incontinence Take 1 tablet (10 mg) by mouth Daily Do not crush, chew, or split. 60 tablet 5 06/12/2024 06/12/2025 Active Ozempic, 1 MG/DOSE, 4 MG/3ML solution pen-injector (4 sources) Start: 09-25-2023 inject 1 mL by subcutaneous injection every week Ozempic, 1 MG/DOSE, 4 MG/3ML solution pen-injector Inject 1ML subcutaneously once a week 09/25/2023 Active tamsulosin hydrochloride 0.4 mg oral capsule (3 sources) alpha-Adrenergic Fercho Start: 06-09-2023 take 1 capsule by mouth twice daily tamsulosin 0.4 mg Cap 0.4 mg = 1 cap(s), Oral, BID, # 30 cap(s), Refills(s) 0, Pharmacy: [id number], 129, cm, 06/09/23 8:24:00 EDT, Height/Length Dosing, 95.8, kg, 06/09/23 8:24:00 EDT, Weight Dosing Start Date: 06/09/23 Status: Ordered {10 (nirmatrelvir 150 MG Oral Tablet) / 10 (ritonavir 100 MG Oral Tablet) } Pack [Paxlovid 150 MG /100 MG Dose Pack] (1 source) Start: 01-05-2022 Paxlovid (150/100) 10 x 150 MG & 10 x 100MG as directed Orally as directed for 5 days Jan, Active Problems Active Problems Problem Classification Problem Date Documented Date Episodic/Chronic Abdominal pain (8 sources) Lower abdominal pain; Translations: [Suprapubic pain] 03-29-2019 Episodic Chronic ulcer of skin (4 sources) Non-pressure chronic ulcer of unspecified part of right lower leg with unspecified severity; Translations: [Non-pressure chronic ulcer of other part of left foot limited to breakdown of skin] Chronic Diabetes mellitus with complications (5 sources) 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; Translations: [Type 2 diabetes mellitus with other skin ulcer] Onset: 06-27-2022 Chronic Diabetes mellitus without complication (4 sources) Diabetes mellitus 03-29-2019 Chronic Disorders of lipid metabolism (4 sources) Hyperlipidemia 03-29-2019 Chronic Endometriosis (4 sources) Uterine adenomyosis; Translations: [Adenomyosis] Onset: 12-13-2023 12-13-2023 Chronic Genitourinary symptoms and ill-defined conditions (7 sources) Stress incontinence (female) (male); Translations: [Genuine stress incontinence] Onset: 07-05-2021 Chronic Genitourinary symptoms and ill-defined conditions (18 sources) Increased frequency of urination; Translations: [Frequency of micturition] Onset: 07-05-2021 Episodic Headache; including migraine (4 sources) Headache; including migraine; Translations: [HEADACHE UNSPECIFIED] Onset: 09-08-2021 Other diseases of bladder and urethra (7 sources) Urethral stricture; Translations: [Unspecified urethral stricture, female] Onset: 07-05-2021 Episodic Other diseases of kidney and ureters (2 sources) Urinary tract obstruction; Translations: [Hydronephrosis with renal and ureteral calculous obstruction] Onset: 06-09-2023 Episodic Other screening for suspected conditions (not mental disorders or infectious disease) (4 sources) Endometrium thickened; Translations: [Abnormal findings on diagnostic imaging of other specified body structures] Onset: 12-13-2023 12-13-2023 Chronic Other screening for suspected conditions (not mental disorders or infectious disease) (8 sources) Patient encounter status; Translations: [Encounter for screening for malignant neoplasm of colon] 06-04-2021 Episodic Other upper respiratory infections (1 source) Acute upper respiratory infection, unspecified Episodic Unclassified (4 sources) Asymptomatic microscopic hematuria 05-18-2020 Unclassified (3 sources) Obstructive hydronephrosis 06-09-2023 Viral infection (4 sources) Human papilloma virus infection; Translations: [Papillomavirus as the cause of diseases classified elsewhere] 12-13-2023 Episodic Past or Other Problems Problem Classification Problem Date Documented Da te Episodic/Chronic Immunizations and screening for infectious disease (1 source) Contact with and (suspected) exposure to other viral communicable diseases Onset: 09-11-2021 Resolved: 09-11-2021 Episodic Unclassified (1 source) Cough R05.9 Viral infection (1 source) COVID-19 Results Test Name Value Interpretation Reference Range Facility BI MAMMOGRAM SCREENING TOMOS YNTHESIS BILATERALon 07-24-2024 BI MAMMOGRAM SCREENING TOMOSYNTHESIS BILATERAL This is a summary report. The complete report is available in the patient's medical record. If you cannot access the medical record, please contact the sending organization for a detailed fax or copy. Examination: BI MAMMOGRAM SCREENING TOMOSYNTHESIS BILATERAL Clinical [...] on the right, grossly unremarkable in appearance. IMPRESSION: Impression: No specific evidence of malignancy seen in either breast. BIRADS 2 - Benign Findings DENSITY: There are scattered areas of fibroglandular density. FOLLOW-UP: Routine Screening Mammogram ELECTRONICALLY SIGNED BY: Ronal Rodriguez M.D. Normal Not Available RAD - MISCon 07-25-2023 RAD - MIS [id number] .[id number] Normal [facility] Lab Reportson 07-24-2023 Lab Reports [id number]. 00TIFF Normal [facility] Alanine aminotransferase [En zymatic activity/volume] in Serum or PlasmaOrdered By: Yoko Mcneal on 06-27-2022 ALT [Catalytic activity/Vol] 16 U/L 7-[address] [facility] Albumin [Mass/volume] in Ser um or Plasma by Bromocresol green (BCG) dye binding methoOrdered By: Yoko Mcneal on 06-27-2022 Albumin BCG dye [Mass/Vol] 4.0 g/dL 3.5-5.[address] [facility] Alkaline phosphatase [Enzyma tic activity/volume] in Serum or PlasmaOrdered By: Yoko Mcneal on 06-27-2022 ALP [Catalytic activity/Vol] 119 U/L 34-[address] [facility] Aspartate aminotransferase [ Enzymatic activity/volume] in Serum or PlasmaOrdered By: Yoko Mcneal on 06-27-2022 AST [Catalytic activity/Vol] 15 U/L 13-[address] [facility] Bilirubin.total [Mass/volume ] in Serum or PlasmaOrdered By: Yoko Mcneal on 06-27-2022 Bilirubin [Mass/Vol] 0.4 mg/dL 0.3-1.0 [facility] Calcium [Mass/volume] in Ser um or PlasmaOrdered By: Yoko Mcneal on 06-27-2022 Calcium [Mass/Vol] 8.8 mg/dL 8.6-10.3 [facility] Carbon dioxide, total [Moles /volume] in Serum or PlasmaOrdered By: Yoko Mcneal on 06-27-2022 CO2 [Moles/Vol] 27.0 mmol/L 21.0-31.0 [facility] Chloride [Moles/volume] in S kash or PlasmaOrdered By: Yoko Mcneal on 06-27-2022 Chloride [Moles/Vol] 105 mmol/L 98-107 [facility] Cholesterol [Mass/volume] in Serum or PlasmaOrdered By: Yoko Mcneal on 06-27-2022 Cholesterol [Mass/Vol] 151 mg/dL 140-200 [facility] Comment on above: Chol less than 200 m g/dl low riskChol 201-239 mg/dl borderline riskChol 240 mg/dl and greater high risk Cholesterol in LDL Calc [Mas s/Vol]Ordered By: Yoko Mcneal on 06-27-2022 Cholesterol in LDL [Mass/Vol] 73 mg/dL 0-[address] [facility] Comment on above: LDL ATP III CLASSIFI CATIONLDL less than 100 mg/dL OptimalLDL 100-129 mg/dL Near or above optimalLDL 130-159 mg/dL Borderline highLDL 160-189 mg/dL HighLDL greater than 189 mg/dL Very high Cholesterol in VLDL Calc [Ma ss/Vol]Ordered By: Yoko Mcneal on 06-27-2022 Cholesterol in VLDL [Mass/Vol] 28 mg/dL [facility] Comprehensive Metabolic Pane camacho 06-27-2022 Albumin [Mass/Vol] 4.0 g/dL Normal 3.5-5.7 [facility] Comment on above: Performed By: #### T SH3 wRFLX, CMP, LIPID #### [facility] [address] [place] [address] [place] Albumin/Globulin [Mass ratio] 1.3 {ratio} Normal [facility] Comment on above: Performed By: #### T SH3 wRFLX, CMP, LIPID #### [facility] [address] [place] [id number] [place] ALP [Catalytic activity/Vol] 119 U/L High 34-[address] [facility] Comment on above: Performed By: #### T SH3 wRFLX, CMP, LIPID #### [facility] [address] [place] [id number] [place] ALT [Catalytic activity/Vol] 16 U/L Normal 7-[address] [facility] Comment on above: Performed By: #### T SH3 wRFLX, CMP, LIPID #### [facility] [address] Anion gap [Moles/Vol] 11.5 mmol/L Normal 6.0-15.0 [facility] Comment on above: Performed By: #### T SH3 wRFLX, CMP, LIPID #### [facility] [address] [place] [id number] [facility] AST [Catalytic activity/Vol] 15 U/L Normal 13-[address] [facility] Comment on above: Performed By: #### T SH3 wRFLX, CMP, LIPID #### [facility] [address] Bilirubin [Mass/Vol] 0.4 mg/dL Normal 0.3-1.0 [facility] Comment on above: Performed By: #### T SH3 wRFLX, CMP, LIPID #### [facility] [address] [place] [address] [place] Calcium [Mass/Vol] 8.8 mg/dL Normal 8.6-10.3 [facility] Comment on above: Performed By: #### T SH3 wRFLX, CMP, LIPID #### [facility] [address] [place] [address] [place] Chloride [Moles/Vol] 105 mmol/L Normal 98-107 [facility] Comment on above: Performed By: #### T SH3 wRFLX, CMP, LIPID #### [facility] [address] [place] [id number] [place] CO2 [Moles/Vol] 27.0 mmol/L Normal 21.0-31.0 [facility] Comment on above: Performed By: #### T SH3 wRFLX, CMP, LIPID #### [facility] [address] [place] [id number] [place] Creatinine [Mass/Vol] 0.59 mg/dL Low 0.60-1.20 [facility] Comment on above: Performed By: #### T SH3 wRFLX, CMP, LIPID #### [facility] [address] [place] [address] [place] GFR/1.73 sq M.predicted MDRD (S/P/Bld) [Vol rate/Area] mL/min/{1.73_m2} Normal [facility] Comment on above: Performed By: #### T SH3 wRFLX, CMP, LIPID #### [facility] [address] Globulin (S) [Mass/Vol] 3.2 g/dL Normal [facility] Comment on above: Performed By: #### T SH3 wRFLX, CMP, LIPID #### [address] Glucose [Mass/Vol] 100 mg/dL Normal 70-100 [facility] Comment on above: Result Comment: [facility] Glucose Reference Range is dependent on time and content of last meal. Glucose of more than 200 mg/dL in a nonstressed, ambulatory subject supports the diagnosis of Diabetes Mellitus. ADA recommended reference range Performed By: #### T SH3 wRFLX, CMP, LIPID #### [address] Potassium [Moles/Vol] 4.5 mmol/L Normal 3.5-5.1 [facility] Comment on above: Performed By: #### T SH3 wRFLX, CMP, LIPID #### [address] Protein [Mass/Vol] 7.2 g/dL Normal 6.4-8.9 [facility] Comment on above: Performed By: #### T SH3 wRFLX, CMP, LIPID #### [facility] [address] Sodium [Moles/Vol] 139 mmol/L Normal 136-145 [facility] Comment on above: Performed By: #### T SH3 wRFLX, CMP, LIPID #### [facility] [address] Urea nitrogen [Mass/Vol] 20 mg/dL Normal 7-[address] [facility] Comment on above: Performed By: #### T SH3 wRFLX, CMP, LIPID #### [facility] [address] Creatinine [Mass/volume] in Serum or PlasmaOrdered By: Yoko Mcneal on 06-27-2022 Creatinine [Mass/Vol] 0.59 mg/dL 0.60-1.20 [facility] Globulin Calc (S) [Mass/Vol] Ordered By: Yoko Mcneal on 06-27-2022 Globulin (S) [Mass/Vol] 3.2 g/dL [facility] Glucose [Mass/volume] in Ser um or PlasmaOrdered By: Yoko Mcneal on 06-27-2022 Glucose [Mass/Vol] 100 mg/dL 70-100 [facility] Comment on above: ADA recommended refe rence rangeRandom Glucose Reference Range is dependent on time and content of last meal. Glucose of more than 200 mg/dL in a nonstressed, ambulatory subject supports the diagnosis of Diabetes Mellitus. Lipid Panelon 06-27-2022 Cholesterol [Mass/Vol] 151 mg/dL Normal 140-200 [facility] Comment on above: Result Comment: Chol less than 200 mg/dl low risk Chol 201-239 mg/dl borderline risk Chol 240 mg/dl and greater high risk Performed By: #### T SH3 wRFLX, CMP, LIPID #### [facility] [address] [place] [address] [place] Cholesterol in HDL [Mass/Vol] 49 mg/dL Normal 35-[address] [facility] Comment on above: Result Comment: HDL CHOL ATP-III CLASSIFICATION Cardiovascular Risk HDL > or equal to 60 mg/dL LOW HDL < 40 mg/dL HIGH Performed By: #### T SH3 wRFLX, CMP, LIPID #### [facility] [address] [place] [id number] [facility] Cholesterol.total/Swetha sterol in HDL [Mass ratio] 3.1 {ratio} Normal <5.[address] [facility] Comment on above: Performed By: #### T SH3 wRFLX, CMP, LIPID #### [facility] [address] LDL Cholesterol,Calculated 73 mg/dL Normal 0-[address] [facility] Comment on above: Result Comment: LDL ATP III CLASSIFICATION LDL less than 100 mg/dL Optimal LDL 100-129 mg/dL Near or above optimal LDL 130-159 mg/dL Borderline high LDL 160-189 mg/dL High LDL greater than 189 mg/dL Very high Performed By: #### T SH3 wRFLX, CMP, LIPID #### [facility] [address] Triglyceride w/Reflex 144 mg/dL Normal 0-149 [facility] Comment on above: Result Comment: TRIG ATP III CLASSIFICATION TRIG less than 150 mg/dL Normal TRIG 150-199 mg/dL Borderline high TRIG 200-500 mg/dL High TRIG greater than 500 mg/dL Very high Standard traceable to the Center for Disease Conrtrol and Prevention (CDC) test method. Performed By: #### T SH3 wRFLX, CMP, LIPID #### [facility] [address] [place] [address] VLDL CHOLESTEROL 28 mg/dL Normal [facility] Comment on above: Performed By: #### T SH3 wRFLX, CMP, LIPID #### [address] MicroAlb Creat Ratio,Uon Albumin DL <= 20 mg/L (U) [Mass/Vol] mg/dL Normal 0.0-1.[address] [facility] Comment on above: Performed By: #### U RMACRERAT #### [address] Creatinine, Urine (Random) 42.0 mg/dL High 11.0-20.[address] [facility] Comment on above: Performed By: #### U RMACRERAT #### [address] Microalbumin/Creatinine Ratio Not performed Normal 0.0-30.[address] [facility] Comment on above: Result Comment: PERF ORMED BY: [place] [address] PATHOLOGIST [employer]CTOR LADONNA PALMER M.D. Performed By: #### U RMACRERAT #### [facility] [address] No Panel InformationOrdered By: Yoko Mcneal on 06-27-2022 Estimated GFR (CKD-EPI) > 60.0 mL/Min [facility] Creatinine Clearance (Chem N/A [facility] Potassium [Moles/volume] in Serum or PlasmaOrdered By: Yoko Mcneal on 06-27-2022 Potassium [Moles/Vol] 4.5 mmol/L 3.5-5.1 [facility] Protein [Mass/volume] in Ser um or PlasmaOrdered By: Yoko Mcneal on 06-27-2022 Protein [Mass/Vol] 7.2 g/dL 6.4-8.9 [facility] Serum or plasma albumin/glob ulin mass ratioOrdered By: Yoko Mcneal on 06-27-2022 Albumin/Globulin [Mass ratio] 1.3 {ratio} [facility] Serum or plasma anion gap de terminationOrdered By: Yoko Mcneal on 06-27-2022 Anion gap [Moles/Vol] 11.5 mmol/L 6.0-15.0 [facility] Serum or plasma high density lipoprotein (HDL) cholesterol measurementOrdered By: Yoko Mcneal on 06-27-2022 Cholesterol in HDL [Mass/Vol] 49 mg/dL 35-[address] [facility] Comment on above: HDL CHOL ATP-III CLA SSIFICATION Cardiovascular RiskHDL > or equal to 60 mg/dL LOWHDL < 40 mg/dL HIGH Serum or plasma total choles terol/high density lipoprotein (HDL) cholesterol mass ratOrdered By: Yoko Mcneal on 06-27-2022 Cholesterol.total/Swetha sterol in HDL [Mass ratio] 3.1 {ratio} <5.[address] [facility] Sodium [Moles/volume] in Ser um or PlasmaOrdered By: Yoko Mcneal on 06-27-2022 Sodium [Moles/Vol] 139 mmol/L 136-145 [facility] Thyroid Stim Hormone w/Rflxo n 06-27-2022 Thyroid Stim Hormone w/Rflx 0.86 u[iU]/mL Normal 0.45-5.[address] [facility] Comment on above: Result Comment: PERF ORMED BY: [place] [address] PATHOLOGIST [employer] IN[employer]CTOR LADONNA PALMER M.D. Performed By: #### T SH3 wRFLX, CMP, LIPID #### [facility] [address] Thyrotropin [Units/volume] i n Serum or PlasmaOrdered By: Yoko Mcneal on 06-27-2022 TSH Qn 0.86 m[IU]/L 0.45-5.[address] [facility] Triglyceride [Mass/volume] i n Serum or PlasmaOrdered By: Yoko Mcneal on 06-27-2022 Triglyceride [Mass/Vol] 144 mg/dL 0-149 [facility] Comment on above: TRIG ATP III CLASSIF ICATIONTRIG less than 150 mg/dL NormalTRIG 150-199 mg/dL Borderline highTRIG 200-500 mg/dL High TRIG greater than 500 mg/dL Very highStandard traceable to the Center for Disease Conrtrol and Prevention (CDC) test method. Urea nitrogen [Mass/volume] in Serum or PlasmaOrdered By: Yoko Mcneal on 06-27-2022 Urea nitrogen [Mass/Vol] 20 mg/dL 7-[address] [facility] SARS-CoV-2 (COVID-19) RNA NA A+probe Ql (Resp)on 01-05-2022 SARS-CoV-2 (COVID-19) RNA SOL+probe Ql (Unsp spec) Positive [place] Other Automated erythrocytes count in urine sediment (number/area)Ordered By: David Allan on 11-17-2021 RBC Auto (Urine sed) [#/Area] 10-19 [HPF] 0-[address] [facility] Automated leukocytes count i n urine sediment (number/area)Ordered By: David Allan on 11-17-2021 WBC Auto (Urine sed) [#/Area] 0-1 [HPF] 0-[address] [facility] Bilirubin Test strip Ql (U)O rdered By: David Allan on 11-17-2021 Bilirubin Ql (U) Negative Negative [facility] Color Auto (U)Ordered By: Karen Allan on 11-17-2021 Color (U) Yellow Yellow [facility] Ketones Auto test strip (U) [Mass/Vol]Ordered By: David Allan on 11-17-2021 Ketones (U) [Mass/Vol] Negative Negative [facility] Laboratory - UrinalysisOrder ed By: David Allan on 11-17-2021 Hyaline casts LM Ql (Urine sed) None seen [LPF] 0-[address] [facility] Nitrite Test strip Ql (U)Ord ered By: David Allan on 11-17-2021 Nitrite Ql (U) Negative Negative [facility] Protein Auto test strip (U) [Mass/Vol]Ordered By: David Allan on 11-17-2021 Protein (U) [Mass/Vol] Negative Negative [facility] Specific gravity Auto test s trip (U) [Rel density]Ordered By: David Allan on 11-17-2021 Specific gravity (U) [Rel density] 1.010 1.001-1.[address] [facility] Squamous epithelial cells de tection in urine sediment by light microscopyOrdered By: David Allan on 11-17-2021 Epithelial cells.squamous LM Ql (Urine sed) 0-1 [HPF] 0-[address] [facility] Urine bacteria detection by automated methodOrdered By: David Allan on 11-17-2021 Bacteria Auto Ql (U) None seen None Seen [facility] Urine clarity by refractomet ry automatedOrdered By: David Allan on 11-17-2021 Clarity Refractometry automated (U) Clear Clear [facility] Urine glucose measurement by automated test strip (mass/volume)Ordered By: David Allan on 11-17-2021 Glucose Auto test strip (U) [Mass/Vol] Normal mg/dL Normal [facility] Urine hemoglobin detection b y automated test stripOrdered By: David Allan on 11-17-2021 Hemoglobin Auto test strip Ql (U) 1+ Negative [facility] Urine leukocyte esterase det ection by automated test stripOrdered By: David Allan on 11-17-2021 Leukocyte esterase Auto test strip Ql (U) Negative Negative [facility] Urobilinogen Auto test strip (U) [Mass/Vol]Ordered By: David Allan on 11-17-2021 Urobilinogen (U) [Mass/Vol] Normal mg/dL Normal [facility] pH Auto test strip (U)Ordere d By: David Allan on 11-17-2021 pH (U) 5.5 [pH] 5.0-9.[address] [facility] SARS-CoV-2 (COVID-19) RNA NA A+probe Ql (Resp)on 09-11-2021 SARS-CoV-2 (COVID-19) RNA SOL+probe Ql (Unsp spec) Negative [facility] Other SCREENING MAMMOGRAM W/NIESHA, BILATERAL*on 04-13-2021 SCREENING MAMMOGRAM W/NIESHA, BILATERAL* CLINICAL HISTORY: Screening Mammogram COMPARISON: Prior from 2019 TECHNIQUE: 2D and 3D mammogram imaging of both breasts was performed. RESULT: DENSITY: There are scattered areas of fibroglandular density. There is no suspicious mass, asymmetry, architectural distortion, or calcification. No significant change since the prior mammograms. Benign nodules with calcifications in the left breast, unchanged. IMPRESSION: BIRADS 2 : BENIGN FINDINGS, NORMAL INTERVAL FOLLOW UP. FOLLOW-UP: 12 months DENSITY: Scattered MAMMOGRAPHY IS VERY IMPORTANT TO YOUR HEALTH. THE CURRENT [employer] GUIDELINES RECOMMENDS ANNUAL MAMMOGRAPHY BEGINNING AT AGE 39 THIS FACILITY USES A REMINDER SYSTEM TO ENSURE ALL PATIENTS RECEIVE REMINDER NOTIFICATIONS AT THE APPROPRIATE TIME BASED ON THE RECOMMENDATIONS OF THIS EXAM. Board Certified Radiologist. Accredited by the ACR and FDA. Report reported and signed by Dudley Cerda on 04/26/2021 1039 Normal [facility] Specialist Vital Signs Date Time Vital Sign Value Performing Clinician Facility 06-12-2024 10:46-0400 Body mass index (BMI) [Ratio] 45.29 kg/m2 Lev White MD Work Phone: [facility] 06-12-2024 10:46-0400 Body weight 96.62 kg Lev White MD Work Phone: [facility] 06-12-2024 10:46-0400 Diastolic blood pressure 78 mm[Hg] Lev White MD Work Phone: [facility] 06-12-2024 10:46-0400 Systolic blood pressure 122 mm[Hg] Lev White MD Work Phone: [facility] 12-13-2023 15:23-0400 Body mass index (BMI) [Ratio] 44.66 kg/m2 Lev White MD Work Phone: [facility] 12-13-2023 15:23-0400 Body weight 95.25 kg Lev White MD Work Phone: [facility] 12-13-2023 15:23-0400 Diastolic blood pressure 70 mm[Hg] Lev White MD Work Phone: [facility] 12-13-2023 15:23-0400 Systolic blood pressure 120 mm[Hg] Lev White MD Work Phone: [facility] 06-30-2023 11:03-0400 Blood Pressure Location Nathan BLACK [facility] 06-30-2023 11:03-0400 Body temperature 98.6 [degF] Nathan BLACK [facility] 06-30-2023 11:03-0400 Diastolic blood pressure 84 mm[Hg] Nathan BLACK [facility] 06-30-2023 11:03-0400 Heart rate 76 /min Nathan BLACK [facility] 06-30-2023 11:03-0400 Respiratory rate 16 /min Nathan BLACK [facility] 06-30-2023 11:03-0400 Systolic blood pressure 136 mm[Hg] Nathan BLACK [facility] 06-09-2023 08:19-0400 Blood Pressure Location Nathan BLACK [facility] 06-09-2023 08:19-0400 Diastolic blood pressure 69 mm[Hg] Nathan BLACK [facility] 06-09-2023 08:19-0400 Heart rate 74 /min Nathan BLACK [facility] 06-09-2023 08:19-0400 Respiratory rate 16 /min Nathan BLACK [facility] 06-09-2023 08:19-0400 Systolic blood pressure 114 mm[Hg] Nathan BLACK [facility] 04-20-2022 10:50-0500 Body height 121.92 cm Nita Weber Other [facility] Other 04-20-2022 10:50-0500 Body mass index (BMI) [Ratio] 61.94 kg/m2 Nita Weber Other [facility] Other 04-20-2022 10:50-0500 Body temperature 98.2 [degF] Nita Weber Other [facility] Other 04-20-2022 10:50-0500 Body weight 92.08 kg Nita Tia Other [facility] Other 04-20-2022 10:50-0500 Diastolic blood pressure 72 mm[Hg] Nita Weber Other [facility] Other 04-20-2022 10:50-0500 Respiratory rate 18 /min Nita Weber Other [facility] Other 04-20-2022 10:50-0500 SaO2% (BldA) [Mass fraction] 100 % Nita Weber Other [facility] Other 04-20-2022 10:50-0500 Systolic blood pressure 121 mm[Hg] Nita Weber Other [facility] Other 01-05-2022 15:55-0400 Body height 149.86 cm Silas Friedman Other [facility] Other 01-05-2022 15:55-0400 Body mass index (BMI) [Ratio] 41.4 kg/m2 Silas Friedman Other [facility] Other 01-05-2022 15:55-0400 Body temperature 97.5 [degF] Silas Friedman Other [facility] Other 01-05-2022 15:55-0400 Body weight 92.99 kg Silas Friedman Other [facility] Other 01-05-2022 15:55-0400 Respiratory rate 18 /min Silas Friedman Other [facility] Other 01-05-2022 15:55-0400 SaO2% (BldA) [Mass fraction] 98 % Silas Friedman Other [facility] Other 09-11-2021 12:35-0400 Body height 121.92 cm Fritz Singh Other [facility] Other 09-11-2021 12:35-0400 Body mass index (BMI) [Ratio] 63.47 kg/m2 Fritz Singh Other [facility] Other 09-11-2021 12:35-0400 Body temperature 97.9 [degF] Fritz Singh Other [facility] Other 09-11-2021 12:35-0400 Body weight 94.35 kg Fritz Singh Other [facility] Other 09-11-2021 12:35-0400 Respiratory rate 18 /min Fritz Singh Other [facility] Other 09-11-2021 12:35-0400 SaO2% (BldA) [Mass fraction] 98 % Fritz Singh Other [facility] Other Encounters Encounter Date Encounter Type Care Provider Facility Start: 09-09-2024 ambulatory Nathan Solorzano ty:[facility] Start: 07-24-2024 End: 07-24-2024 ambulatory LEV WHITE Not Available Start: 06-12-2024 End: 06-12-2024 Patient encounter status Lev White MD Work Phone: [facility] Work Phone: Start: 06-12-2024 End: 06-12-2024 Periodic preventive med est patient 40-64yrs Lev White MD Work Phone: [facility] Comment on above: Screening mammogram, encounter for (Primary Dx); Encounter for gynecological examination without abnormal finding; Encounter for screening for cervical cancer; HPV in female; Stress incontinence Start: 06-12-2024 End: 06-12-2024 ambulatory LEV WHITE Not Available Start: 12-13-2023 End: 12-13-2023 ambulatory LEV WHITE Not Available Start: 12-13-2023 End: 12-13-2023 Office outpatient visit 15 minutes Lev White MD Work Phone: [facility] Comment on above: HPV in female; Screening for malignant neoplasm of cervix Start: 08-08-2023 End: 08-08-2023 ambulatory LEV WHITE Not Available Start: 07-28-2023 End: 07-28-2023 ambulatory Nathan BLACK Facility:[facility] Start: 07-28-2023 End: 07-28-2023 Patient encounter procedure Nathan BLACK [facility] Start: 06-30-2023 End: 06-30-2023 Patient encounter procedure Nathan BLACK [facility] Start: 06-09-2023 End: 06-09-2023 Patient encounter procedure Nathan BLACK [facility] Start: 06-27-2022 End: 06-27-2022 ambulatory Yoko Mcneal Facility:[facility] Start: 06-27-2022 End: 06-27-2022 ambulatory MERY Mcneal Work Phone: [facility] Work Phone: Start: 06-27-2022 End: 06-27-2022 Departed Referred MERY Mcneal Work Phone: [facility] Start: 04-20-2022 End: 04-20-2022 ambulatory Nita Weber Other [facility] Other Start: 04-20-2022 Office outpatient vi sit 15 minutes Nita Weber [facility] Start: 01-05-2022 End: 01-05-2022 ambulatory Silas Friedman Other [facility] Other Start: 01-05-2022 Office outpatient vi sit 15 minutes Silas Friedman [facility] [address] Start: 11-17-2021 End: 11-17-2021 Departed Referred MD David Allan Work Phone: [facility] [place] Start: 09-11-2021 End: 09-11-2021 ambulatory Fritz Singh Other [facility] [employer] Other Start: 09-11-2021 Office outpatient ne w 20 minutes Fritz Singh [facility] Start: 09-08-2021 End: 09-09-2021 ambulatory SVEN SANON DAKOTAH Facility: Start: 07-05-2021 End: 07-05-2021 Patient encounter procedure David ALLAN [facility] Procedures Date Procedure Procedure Detail Performing Clinician Start: 07-18-2023 Mammography Lev winkler MD Work Phone: Start: 06-08-2023 Microscopic observat ion [Identifier] in Cervix by Cyto stain Lev White MD Work Phone: Start: 11-17-2021 Cystourethroscopy wi th dilation of urethral stricture Nathan WAYNE Start: 06-22-2021 Colonoscopy Lev winkler MD Work Phone: Start: 05-27-2020 Cystourethroscopy wi th dilation of urethral stricture David ALLAN Plan of Treatment Date Care Activity Detail Author Start: 06-23-2031 Screening for malign ant neoplasm of colon [facility] Start: 06-07-2028 Screening for malign ant neoplasm of cervix [facility] Start: 06-07-2026 Screening for malign ant neoplasm of cervix Pap Smear [facility] Start: 12-12-2024 End: 12-12-2024 Patient encounter procedure 12/12/2024 10:00 AM EDT Office Visit [facility] [address] [place] [id number] Lev White MD [address] [place] [address] [facility] Start: 11-04-2024 Influenza vaccination Influenz a Vaccine (Season Ended) [facility] Start: 07-17-2024 Screening for malign ant neoplasm of breast Mammogram [facility] Start: 07-12-2024 End: 10-12-2024 DBT Breast - bilateral screening Bilateral screening mammogram with tomosynthesis Imaging Routine Screening mammogram, encounter for Expected: 07/12/2024, Expires: 10/12/2024 [facility] Comment on above: Expected: 07/12/2024 , Expires: 10/12/2024 Start: 02-07-2024 End: 02-07-2024 Patient encounter procedure 02/07/2024 3:00 PM EST Office Visit [facility] [address] [place] [address] Lev White MD [address] [place] [address] [facility] Start: 11-05-2023 Influenza vaccination Influenza Vacc ine (#1) [facility] Start: 1970 Screening for malign ant neoplasm of colon [facility] Bacteria identified in Urine by Culture [facility] IGP, APT HPV,RFX 16/18,45 IGP, APT HPV,RFX 16/18,45 Lab Routine Encounter for gynecological examination without abnormal finding Encounter for screening for cervical cancer Ordered: 06/12/2024 [facility] Work Phone: Comment on above: Ordered: 06/12/2024 SENDOUT TEST MISCELLANEOUS [facility] SENDOUT TEST MISCELLANEOUS [facility] Routine HPV in female Screening for malignant neoplasm of cervix Ordered: 12/13/2023 [facility] Work Phone: Comment on above: Ordered: 12/13/2023 Immunizations Immunization Date Immunization Notes Care Provider Fa [facility] 01-04-2023 influenza, injectable, quadrivalent, contains preservative Lev White MD Work Phone: [facility] 01-04-2023 influenza virus vaccine, unspecified formulation Lev White MD Work Phone: [facility] 12-23-2021 influenza, injectable, quadrivalent, contains preservative Lev White MD Work Phone: [facility] 07-09-2020 SARS-CoV-2 (COVID-19 ) mRNA-1273 vaccine Nathan BLACK [facility] 06-11-2020 SARS-CoV-2 (COVID-19 ) mRNA-1273 vaccine David ALLAN [facility] 06-04-2020 SARS-CoV-2 (COVID-19 ) mRNA-1273 vaccine David ALLAN [facility] 05-04-2020 SARS-CoV-2 (COVID-19 ) mRNA-1273 vaccine David ALLAN [facility] 12-21-2017 influenza virus vaccine, unspecified formulation Nathan BLACK [facility] 12-21-2017 influenza, injectable, quadrivalent, preservative free Lev White MD Work Phone: [facility] NEGATED: Highlighted row has not occurred!05-18-2020 influenza virus vaccine, unspecified formulation David ALLAN [facility] Payers Date Payer Category Payer Private Health Insurance [facility] N [id number] 2023 Unknown JUANITA ZAMORANO [id number] 2023-Present [phone] [address] [place] [id number] 2023 Unknown [id number] 2023 Managed Care HMO (unspecified) [id number] 2022 Self-pay [id number] 1970 Unknown [id number] 1970 Unknown [id number] 1970 Unknown [id number] 1970 Unknown [id number] 1970 Unknown [id number] 1970 Unknown [id number] 1970 Unknown [id number] 1970 Unknown [id number] 1959 Unknown [id number] Unknown Regular Insurance [id number] Unknown [id number] Social History Date Type Detail Facility Start: 02-01-2021 End: 06-08-2023 Tobacco smoking status Never smoked tobacco (finding) [facility] [employer] Tobacco smoking status Never [facility] Start: 06-08-2023 End: 12-13-2023 Sex Assigned At Female [facility] Start: 1970 Sex Assigned At Female F [facility] Start: 06-08-2023 Tobacco use and exposure Smokeless tobacco non-user [facility] Start: 12-13-2023 Alcoholic beverage intake Ex-drinker (finding) [facility] Start: 06-08-2023 End: 12-13-2023 History of Social function [facility] How often to you hav e a drink containing alcohol? Never [facility] Start: 1970 Sex assigned at Not on file [facility] Functional Status Date Assessment Result Facility 06-30-2023 Functional Status N/A [facility] 06-09-2023 Functional Status N/A [facility] Clinical Notes 07-05-2021 to 06-12-2024 Lev White MD - 06/12/2024 10:45 AM EDTPlucinda White MD - 12/13/2023 2:45 PM EDT Note Date & Type Note Facility 06-12-2024 History of Presen t illness Narrative Images from the original note were not included. Lev White MD Obstetrics and Gynecology Patient: Kaleb Piper : 1970 (53 y.o.) Exam Date: 06/12/2024 Reason for Visit - Chief Complaint Patient presents with Repeat pap Last pap: 12/13/23 - Neg 4/4/24 - HPV+ 04/06/21 - Neg History of SOCK KNITTER myoma with PMPB Endometrial depth 3.2mmEMB 2021 QNS Last mammogram 07/27 Visit Vitals LMP (LMP Unknown) OB Status Postmenopausal Smoking Status Never History of Present Illness, Associated Treatments and Results - OB History Para Term AB Living 4 0 0 0 0 0 SAB IAB Ectopic Multiple Live Births 0 0 0 0 0 # Outcome Date GA Lbr Floyd/2nd Weight Sex Type Anes PTL Lv 4 3 2 1 Constitutional: Negative. HENT: Negative. Eyes: Negative. Respiratory: Negative. Cardiovascular: Negative. Gastrointestinal: Negative. Endocrine: Negative. Genitourinary: Negative. Musculoskeletal: Negative. Skin: Negative. Allergic/Immunologic: Negative. Neurological: Negative. Hematological: Negative. Psychiatric/Behavioral: Negative. No Known Allergies Current Outpatient Medications: ibuprofen 800 MG tablet, TAKE 1 TABLET BY MOUTH 3 TIMES A DAY NEEDED. TAKE WITH FOOD OR MILK., Disp: , Rfl: Ozempic, 1 MG/DOSE, 4 MG/3ML solution pen-injector, Inject 1ML subcutaneously once a week, Disp: , Rfl: No past medical history on file. No past surgical history on file. Family History Problem Relation Name Age of Onset Alzheimer's disease Mother Social History Tobacco Use Smoking Status Never Smokeless Tobacco Never Meds metformin medical diabetes cholesterol vd x4 2s2d Physical Exam - General appearance, mentation, extraocular movements, facial strength and movement, hearing, upper and lower extremity strength and tone, sensation to gross testing, coordination, and gait are normal or at baseline unless noted below. Physical Exam Constitutional: Appearance: Normal appearance. Genitourinary: Right Labia: No rash or lesions. Left Labia: No lesions or rash. No vaginal discharge or erythema. No vaginal prolapse present. No vaginal atrophy present. Right Adnexa: not tender and no mass present. Left Adnexa: not tender and no mass present. No cervical lesion. Uterus is not tender. Uterus is anteverted. Breasts: Right: Normal. No mass or nipple discharge. Left: Normal. No mass or nipple discharge. HENT: Head: Normocephalic and atraumatic. Cardiovascular: Rate and Rhythm: Normal rate and regular rhythm. Pulmonary: Breath sounds: Normal breath sounds. Abdominal: General: There is no distension. Palpations: Abdomen is soft. There is no mass. Tenderness: There is no abdominal tenderness. Musculoskeletal: General: Normal range of motion. Cervical back: Neck supple. Lymphadenopathy: Cervical: No cervical adenopathy. Neurological: Mental Status: She is alert and oriented to person, place, and time. Skin: General: Skin is warm and dry. Psychiatric: Mood and Affect: Mood normal. Assessment/Plan ICD-10-CM 1. Encounter for gynecological examination without abnormal finding Z01.419 2. Encounter for screening for cervical cancer Z12.4 3. 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 Well-woman exam. She is due for her mammogram. A mammogram has been ordered, and she is advised to schedule the appointment promptly. A Pap smear is scheduled for her next visit in 6 months. Pap done today 2. Urinary incontinence. A new medication has been prescribed to help with urinary leaking. Potential side effects, including dry mouth and constipation, were discussed. Oxybutinin ordered Follow-up The patient will follow up in 6 months for repap documented in this encounter [facility] 12-13-2023 History of Presen t illness Narrative Images from the original note were not included. Lev White MD Obstetrics and Gynecology Patient: Kaleb Piper : 1970 (53 y.o.) Exam Date: 12/13/2023 Reason for Visit - Chief Complaint Patient presents with repeat pap 06/08/23- hpv Vaginal pain last week but has gotten better. Visit Vitals LMP (LMP Unknown) OB Status Postmenopausal Smoking Status Never History of Present Illness, Associated Treatments and Results - OB History Para Term AB Living 4 0 0 0 0 0 SAB IAB Ectopic Multiple Live Births 0 0 0 0 0 # Outcome Date GA Lbr Floyd/2nd Weight Sex Type Anes PTL Lv 4 3 2 1 Constitutional: Negative. HENT: Negative. Eyes: Negative. Respiratory: Negative. Cardiovascular: Negative. Gastrointestinal: Negative. Endocrine: Negative. Genitourinary: Negative. Musculoskeletal: Negative. Skin: Negative. Allergic/Immunologic: Negative. Neurological: Negative. Hematological: Negative. Psychiatric/Behavioral: Negative. No Known Allergies No current outpatient medications on file. No past medical history on file. No past surgical history on file. No family history on file. Social History Tobacco Use Smoking Status Never Smokeless Tobacco Never Physical Exam - General appearance, mentation, extraocular movements, facial strength and movement, hearing, upper and lower extremity strength and tone, sensation to gross testing, coordination, and gait are normal or at baseline unless noted below. Physical Exam Constitutional: Appearance: Normal appearance. Genitourinary: Right Labia: No rash. Left Labia: No rash. No vaginal discharge. No vaginal prolapse present. Moderate vaginal atrophy present. No cervical lesion. HENT: Head: Normocephalic and atraumatic. Neurological: Mental Status: She is alert and oriented to person, place, and time. Psychiatric: Mood and Affect: Mood normal. Behavior: Behavior normal. Cx posterior Assessment/Plan ICD-10-CM 1. 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 Screening for malignant neoplasm of cervix Z12.4 Kaleb was seen today for repeat pap. Diagnoses and all orders for this visit: HPV in female - SENDOUT TEST MISCELLANEOUS [facility] Screening for malignant neoplasm of cervix - SENDOUT TEST MISCELLANEOUS [facility] Pt presents for repap for HPV+ She will be informed of results She will call back for vaginal pain recurrennce Follow up 6 months documented in this encounter [facility] 06-30-2023 Hospital Discharg e instructions Follow Up Care 06/30/2023 11:47:44 With:WAYNE GUZMAN, Nathan Amanda, URL Address: [facility] [address] [place] [address] [phone] When: Unknown [facility] 06-30-2023 Hospital Discharg e instructions Patient Education 06/30/2023 11:42:56 Intravenous Pyelogram Intravenous Pyelogram An intravenous pyelogram is an X-ray of the urinary tract. The urinary tract is the system through which urine travels. This tract includes the kidneys, ureters, and bladder. An intravenous pyelogram can help your health care provider find problems, such as: Kidney stones. Bladder stones. An enlarged prostate. Tumors. Tell a health care provider about: Any allergies you have. All medicines you are taking, including vitamins, herbs, eye drops, creams, and decj-jvf-zqltviq medicines. Any problems you or family members have had with anesthetic medicines. Any blood disorders you have. Any surgeries you have had. Any medical conditions you have. Whether you are or may be . What are the risks? Generally, this is a safe procedure. However, problems may occur, including: Nausea. An allergic reaction to the dye that is used during the procedure. What happens before the procedure? Follow instructions from your health care provider about eating or drinking restrictions. Follow instructions from your health care provider about preparing for the test by taking an oral bowel prep. Ask your health care provider about changing or stopping your regular medicines. This is especially important if you are taking diabetes medicines or blood thinners. You may need to remove glasses, jewelry, and any other metal objects. You may be asked to put on a hospital gown. What happens during the procedure? You will lie down on an exam table. An IV will be inserted into one of your veins. A contrast dye will be injected through the IV. This dye will help your health care provider see the urinary tract better on the X-rays. When the dye enters your body, you may feel warm or have a strange taste in your mouth. The feeling will not last long. A photo equipment technician will take X-rays. To make the X-rays clearer: ?Pressure may be applied to your abdomen. ?You may be asked not to move for long periods of time. ?You may be asked to change positions. You may be asked to empty your bladder before the final X-ray is taken. The procedure may vary among health care providers and hospitals. What can I expect after procedure? You may feel weak from not eating or drinking. You may return to your normal activities right after the procedure. You may safely drive home right after the procedure. Follow these instructions at home: Return to your normal activities as told by your health care provider. Ask your health care provider what activities are safe for you. Drink enough fluid to keep your urine pale yellow. This will help flush out the dye in your body. Take kisy-tvc-bxzhdvc and prescription medicines only as told by your health care provider. It is up to you to get the results of your procedure. Ask your health care provider, or the department that is doing the procedure, when your results will be ready. Keep all follow-up visits as told by your health care provider. This is important. Contact a health care provider if: You start urinating less than you usually do. Get help right away if: You feel nauseous or you vomit. You have itching or itchy, red, swollen areas on the skin (hives). You have trouble breathing. Your throat swells. You have chest pain. You have chills or a fever. Summary An intravenous pyelogram is an X-ray of the urinary tract. It is used to help your health care provider find problems such as kidney or bladder stones, an enlarged prostate, or tumors. This is a safe procedure. However, problems may occur, including nausea or an allergic reaction to the dye that is used. Follow instructions from your health care provider about eating and drinking. Ask if you need to change or stop any medicines you are taking. During the procedure, a photo equipment technician will insert an IV into one of your veins, inject a contrast dye, and then take X-rays of your abdomen. You may resume normal activities after the procedure. Get help right away if you have nausea, itchy skin, trouble breathing, swelling in your throat, chest pain, or fever. This information is not intended to replace advice given to you by your health care provider. Make sure you discuss any questions you have with your health care provider. Document Revised: 11/03/2021 Document Reviewed: 03/27/2019 [facility] Patient Education 2022 Infer. Follow Up Care 06/09/2023 09:08:19 With:WAYNE GUZMAN, Nathan Amanda, URL Address: [address] [place] [phone]- When: Unknown [facility] 06-09-2023 Hospital Discharg e instructions Patient Education 06/09/2023 09:00:14 Dietary Guidelines to Help Prevent Kidney Stones Dietary Guidelines to Help Prevent Kidney Stones Kidney stones are deposits of minerals and salts that form inside your kidneys. Your risk of developing kidney stones may be greater depending on your diet, your lifestyle, the medicines you take, and whether you have certain medical conditions. Most people can lower their risks of developing kidney stones by following these dietary guidelines. Your dietitian may give you more specific instructions depending on your overall health and the type of kidney stones you tend to develop. What are tips for following this plan? Reading food labels Choose foods with no salt added or low-salt labels. Limit your salt (sodium) intake to less than 1,500 mg a day. Choose foods with calcium for each meal and snack. Try to eat about 300 mg of calcium at each meal. Foods that contain 200 500 mg of calcium a serving include: ?8 oz (237 mL) of milk, jjrkjki-fcgnvebnrdhb-cgblg milk, and calcium-fortifiedfruit juice. Calcium-fortified means that calcium has been added to these drinks. ?8 oz (237 mL) of kefir, yogurt, and soy yogurt. ?4 oz (114 g) of tofu. ?1 oz (28 g) of cheese. ?1 cup (150 g) of dried figs. ?1 cup (91 g) of cooked broccoli. ?One 3 oz (85 g) can of sardines or mackerel. Most people need 1,000 1,500 mg of calcium a day. Talk to your dietitian about how much calcium is recommended for you. Shopping Buy plenty of fresh fruits and vegetables. Most people do not need to avoid fruits and vegetables, even if these foods contain nutrients that may contribute to kidney stones. When shopping for convenience foods, choose: ?Whole pieces of fruit. ?Pre-made salads with dressing on the side. ?Low-fat fruit and yogurt smoothies. Avoid buying frozen meals or prepared deli foods. These can be high in sodium. Look for foods with live cultures, such as yogurt and kefir. Choose high-fiber grains, such as whole-wheat breads, oat bran, and wheat cereals. Cooking Do not add salt to food when cooking. Place a salt shaker on the table and allow each person to add their own salt to taste. Use vegetable protein, such as beans, textured vegetable protein (TVP), or tofu, instead of meat in pasta, casseroles, and soups. Meal planning Eat less salt, if told by your dietitian. To do this: ?Avoid eating processed or pre-made food. ?Avoid eating fast food. Eat less animal protein, including cheese, meat, poultry, or fish, if told by your dietitian. To do this: ?Limit the number of times you have meat, poultry, fish, or cheese each week. Eat a diet free of meat at least 2 days a week. ?Eat only one serving each day of meat, poultry, fish, or seafood. ?When you prepare animal proteins, cut pieces into small portion sizes. For most meat and fish, one serving is about the size of the palm of your hand. Eat at least five servings of fresh fruits and vegetables each day. To do this: ?Keep fruits and vegetables on hand for snacks. ?Eat one piece of fruit or a handful of berries with breakfast. ?Have a salad and fruit at lunch. ?Have two kinds of vegetables at dinner. You may be told to limit foods that are high in a substance called oxalate. These include: ?Spinach (cooked), rhubarb, beets, sweet potatoes, and Australian chard. ?Peanuts. ?Potato chips, slovenian fries, and baked potatoes with skin on. ?Nuts and nut products. ?Chocolate. If you regularly take a diuretic medicine, make sure to eat at least 1 or 2 servings of fruits or vegetables that are high in potassium each day. These include: ?Avocado. ?Banana. ?Fisher, prune, carrot, or tomato juice. ?Baked potato. ?Cabbage. ?Beans and split peas. Lifestyle Drink enough fluid to keep your urine pale yellow. This is the most important thing you can do. Spread your fluid intake throughout the day. If you drink alcohol: ?Limit how much you have to: ?0 1 drink a day for women who are not . ?0 2 drinks a day for men. ?Know how much alcohol is in your drink. In the [place] one drink equals one 12 oz bottle of beer (355 mL), one 5 oz glass of wine (148 mL), or one 1 oz glass of hard liquor (44 mL). Lose weight if told by your health care provider. Work with your dietitian to find an eating plan and weight loss strategies that work best for you. General information Talk to your health care provider and dietitian about taking daily supplements. Depending on your health and the cause of your kidney stones, you may be told: ?Do not take high-dose supplements of vitamin C (1,000 mg a day or more). ?To take a calcium supplement. ?To take a daily probiotic supplement. ?To take other supplements such as magnesium, fish oil, or vitamin B6. Take sxna-vko-hisdgln and prescription medicines only as told by your health care provider. These include supplements. What foods should I limit? Limit your intake of the following foods, or eat them as told by your dietitian. Vegetables Spinach. Rhubarb. Beets. Canned vegetables. Pickles. Olives. Baked potatoes with skin. Grains Wheat bran. Baked goods. Salted crackers. Cereals high in sugar. Meats and other proteins Nuts. Nut butters. Large portions of meat, poultry, or fish. Salted, precooked, or cured meats, such as sausages, meat loaves, and hot dogs. Dairy Cheeses. Beverages Regular soft drinks. Regular vegetable juice. Seasonings and condiments Seasoning blends with salt. Salad dressings. Soy sauce. Ketchup. Barbecue sauce. Other foods Canned soups. Canned pasta sauce. Casseroles. Pizza. Lasagna. Frozen meals. Potato chips. Mexican fries. The items listed above may not be a complete list of foods and beverages you should limit. Contact a dietitian for more information. What foods should I avoid? Talk to your dietitian about specific foods you should avoid based on the type of kidney stones you have and your overall health. Fruits Grapefruit. The item listed above may not be a complete list of foods and beverages you should avoid. Contact a dietitian for more information. Summary Kidney stones are deposits of minerals and salts that form inside your kidneys. You can lower your risk of kidney stones by making changes to your diet. The most important thing you can do is drink enough fluid. Drink enough fluid to keep your urine pale yellow. Talk to your dietitian about how much calcium you should have each day, and eat less salt and animal protein as told by your dietitian. This information is not intended to replace advice given to you by your health care provider. Make sure you discuss any questions you have with your health care provider. Document Revised: 06/02/2022 Document Reviewed: 06/02/2022 [employer] Patient Education 2022 Infer. Follow Up Care 06/06/2023 14:53:03 With:WAYNE GUZMAN, Nathan Amanda, URL Address: [address] [place] [phone]- When: Unknown [facility] 04-20-2022 Evaluation note Encounter Date Diagnosis Assessment Notes Apr, Type 2 diabetes mellitus with other skin ulcer (ICD-10 - E11.622) Drink plenty fluids, get plenty of rest. Continue home medications as prescribed. Take the clindamycin as prescribed until gone. Keep the wounds clean and dry. Call your primary care physician today for an appointment for recheck as soon as possible. 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 Push fluids and get plenty of rest. Covid 19 PCR test is positive. Given her age and duration of symptoms, she is a good candidate for paxlovid. I do not have a recent GFR from the patient. Educated about the risks vs benefit of medicine. She understands and would like to still start it. Will also prescribe fluticasone and benzonatate. Pt given her return precautions. Also advised to follow up with pcp in 7-10 days. Jan, COVID-19 virus infection (ICD-10 - U07.1) [facility] 07-09-2022 Evaluation note* Encounter Date Diagnosis Assessment Notes Treatment Notes Treatment Clinical Notes Sep, Contact with and (suspected) exposure to other viral communicable diseases (ICD-10 - Z20.828) Informed pt that covid test was negative. Will treat as viral at this time based on PE findings. Therefore, no abx is indicated for tx. Supportive care as directed. Rest and push fluids. Pt to take otc antipyretic prn for fever and aches. If coughing patient may take otc cough medicine. Pt to f/u with pcp as needed for persistent or recurrent sx. Pt understood and agreed to treatment plan. [facility] 05-02-2022 Hospital Discharge instructions Patient Education 07/05/2021 15:09:20 Calorie Counting for Weight Loss Calorie Counting for Weight Loss Calories are units of energy. Your body needs a certain amount of calories from food to keep you going throughout the day. When you eat more calories than your body needs, your body stores the extra calories as fat. When you eat fewer calories than your body needs, your body mclaughlin fat to get the energy it needs. Calorie counting means keeping track of how many calories you eat and drink each day. Calorie counting can be helpful if you need to lose weight. If you make sure to eat fewer calories than your bodyneeds, you should lose weight. Ask your health care provider what a healthy weight is for you. For calorie counting to work, you will need to eat the right number of calories in a day in order to lose a healthy amount of weight per week. A dietitian can help you determine how many calories youneed in a day and will give you suggestions on how to reach your calorie goal. A healthy amount of weight to lose per week is usually 1 2 lb (0.5 0.9 kg). This usually means thatyour daily calorie intake should be reduced by 500 750 calories. Eating 1,200 1,500 calories per day can help most women lose weight. Eating 1,500 1,800 calories per day can help most men lose weight. What is my plan? My goal is to have calories per day. If I have this many calories per day, I should lose around pounds per week. What do I need to know about calorie counting? In order to meet your daily calorie goal, you will need to: Find out how many calories are in each food you would like to eat. Try to do this before you eat. Decide how much of the food you plan to eat. Write down what you ate and how many calories it had. Doing this is called keeping a food log. To successfully lose weight, it is important to balance calorie counting with a healthy lifestyle that includes regular activity. Aim for 150 minutes of moderate exercise (such as walking) or 75 minutes of vigorous exercise (such as running) each week. Where do I find calorie information? The number of calories in a food can be found on a Nutrition Facts label. If a food does not have aNutrition Facts label, try to look up the calories online or ask your dietitian for help. Remember that calories are listed per serving. If you choose to have more than one serving of a food, you will have to multiply the calories per serving by the amount of servings you plan to eat. Forexample, the label on a package of bread might say that a serving size is 1 slice and that there are 90 calories in a serving. If you eat 1 slice, you will have eaten 90 calories. If you eat 2 slices, you will have eaten 180 calories. How do I keep a food log? Immediately after each meal, record the following information in your food log: What you ate. Don't forget to include toppings, sauces, and other extras on the food. How much you ate. This can be measured in cups, ounces, or number of items. How many calories each food and drink had. The total number of calories in the meal. Keep your food log near you, such as in a small notebook in your pocket, or use a mobile jovita or website. Some programs will calculate calories for you and show you how many calories you have left forthe day to meet your goal. What are some calorie counting tips? Use your calories on foods and drinks that will fill you up and not leave you hungry: ?Some examples of foods that fill you up are nuts and nut butters, vegetables, lean proteins, and high-fiber foods like whole grains. High-fiber foods are foods with more than 5 g fiber per serving. ?Drinks such as sodas, specialty coffee drinks, alcohol, and juices have a lot of calories, yet do not fill you up. Eat nutritious foods and avoid empty calories. Empty calories are calories you get from foods or beverages that do not have many vitamins or protein, such as candy, sweets, and soda. It is better to have a nutritious high-calorie food (such as an avocado) than a food with few nutrients (such as a bag of chips). Know how many calories are in the foods you eat most often. This will help you calculate calorie counts faster. Pay attention to calories in drinks. Low-calorie drinks include water and unsweetened drinks. Pay attention to nutrition labels for low fat or fat free foods. These foods sometimes have thesame amount of calories or more calories than the full fat versions. They also often have added sugar, starch, or salt, to make up for flavor that was removed with the fat. Find a way of tracking calories that works for you. Get creative. Try different apps or programs ifwriting down calories does not work for you. What are some portion control tips? Know how many calories are in a serving. This will help you know how many servings of a certain food you can have. Use a measuring cup to measure serving sizes. You could also try weighing out portions on a kitchenscale. With time, you will be able to estimate serving sizes for some foods. Take some time to put servings of different foods on your favorite plates, bowls, and cups so you know what a serving looks like. Try not to eat straight from a bag or box. Doing this can lead to overeating. Put the amount you would like to eat in a cup or on a plate to make sure you are eating the right portion. Use smaller plates, glasses, and bowls to prevent overeating. Try not to multitask (for example, watch TV or use your computer) while eating. If it is time to eat, sit down at a table and enjoy your food. This will help you to know when you are full. It will also help you to be aware of what you are eating and how much you are eating. What are tips for following this plan? Reading food labels Check the calorie count compared to the serving size. The serving size may be smaller than what youare used to eating. Check the source of the calories. Make sure the food you are eating is high in vitamins and proteinand low in saturated and trans fats. Shopping Read nutrition labels while you shop. This will help you make healthy decisions before you decide to purchase your food. Make a grocery list and stick to it. Cooking Try to cook your favorite foods in a healthier way. For example, try baking instead of frying. Use low-fat dairy products. Meal planning Use more fruits and vegetables. Half of your plate should be fruits and vegetables. Include lean proteins like poultry and fish. How do I count calories when eating out? Ask for smaller portion sizes. Consider sharing an entree and sides instead of getting your own entree. If you get your own entree, eat only half. Ask for a box at the beginning of your meal and put the rest of your entree in it so you are not tempted to eat it. If calories are listed on the menu, choose the lower calorie options. Choose dishes that include vegetables, fruits, whole grains, low-fat dairy products, and lean protein. Choose items that are boiled, broiled, grilled, or steamed. Stay away from items that are buttered,battered, fried, or served with cream sauce. Items labeled crispy are usually fried, unless stated otherwise. Choose water, low-fat milk, unsweetened iced tea, or other drinks without added sugar. If you want an alcoholic beverage, choose a lower calorie option such as a glass of wine or light beer. Ask for dressings, sauces, and syrups on the side. These are usually high in calories, so you should limit the amount you eat. If you want a salad, choose a garden salad and ask for grilled meats. Avoid extra toppings like guevara, cheese, or fried items. Ask for the dressing on the side, or ask for olive oil and vinegar or lemon to use as dressing. Estimate how many servings of a food you are given. For example, a serving of cooked rice is cup orabout the size of half a baseball. Knowing serving sizes will help you be aware of how much food you are eating at restaurants. The list below tells you how big or small some common portion sizes arebased on everyday objects: ?1 oz 4 stacked dice. ?3 oz 1 deck of cards. ?1 tsp 1 . ?1 Tbsp a ping-pong ball. ?2 Tbsp 1 ping-pong ball. ? cup baseball. ?1 cup 1 baseball. Summary Calorie counting means keeping track of how many calories you eat and drink each day. If you eat fewer calories than your body needs, you should lose weight. A healthy amount of weight to lose per week is usually 1 2 lb (0.5 0.9 kg). This usually means reducing your daily calorie intake by 500 750 calories. The number of calories in a food can be found on a Nutrition Facts label. If a food does not have aNutrition Facts label, try to look up the calories online or ask your dietitian for help. Use your calories on foods and drinks that will fill you up, and not on foods and drinks that will leave you hungry. Use smaller plates, glasses, and bowls to prevent overeating. This information is not intended to replace advice given to you by your health care provider. Make sure you discuss any questions you have with your health care provider. Document Released: 02/20/2006 Document Revised: 11/09/2018 Document Reviewed: 01/20/2017 [employer] Patient Education 2020 Infer. 07/05/2021 15:09:16 Hematuria, Adult Hematuria, Adult Hematuria is blood in the urine. Blood may be visible in the urine, or it may be identified with a test. This condition can be caused by infections of the bladder, urethra, kidney, or prostate. Otherpossible causes include: Kidney stones. Cancer of the urinary tract. Too much calcium in the urine. Conditions that are passed from parent to child (inherited conditions). Exercise that requires a lot of energy. Infections can usually be treated with medicine, and a kidney stone usually will pass through your urine. If neither of these is the cause of your hematuria, more tests may be needed to identify the cause of your symptoms. It is very important to tell your health care provider about any blood in your urine, even if it ispainless or the blood stops without treatment. Blood in the urine, when it happens and then stops and then happens again, can be a symptom of a very serious condition, including cancer. There is no pain in the initial stages of many urinary cancers. Follow these instructions at home: Medicines Take iwgs-cdf-iadcvkl and prescription medicines only as told by your health care provider. If you were prescribed an antibiotic medicine, take it as told by your health care provider. Do notstop taking the antibiotic even if you start to feel better. Eating and drinking Drink enough fluid to keep your urine clear or pale yellow. It is recommended that you drink 3 4 quarts (2.8 3.8 L) a day. If you have been diagnosed with an infection, it is recommended that you drink cranberry juice in addition to large amounts of water. Avoid caffeine, tea, and carbonated beverages. These tend to irritate the bladder. Avoid alcohol because it may irritate the prostate (men). General instructions If you have been diagnosed with a kidney stone, follow your health care provider's instructions about straining your urine to catch the stone. Empty your bladder often. Avoid holding urine for long periods of time. If you are female: ?After a bowel movement, wipe from front to back and use each piece of toilet paper only once. ?Empty your bladder before and after sex. Pay attention to any changes in your symptoms. Tell your health care provider about any changes or any new symptoms. It is your responsibility to get your test results. Ask your health care provider, or the department performing the test, when your results will be ready. Keep all follow-up visits as told by your health care provider. This is important. Contact a health care provider if: You develop back pain. You have a fever. You have nausea or vomiting. Your symptoms do not improve after 3 days. Your symptoms get worse. Get help right away if: You develop severe vomiting and are unable take medicine without vomiting. You develop severe pain in your back or abdomen even though you are taking medicine. You pass a large amount of blood in your urine. You pass blood clots in your urine. You feel very weak or like you might faint. You faint. Summary Hematuria is blood in the urine. It has many possible causes. It is very important that you tell your health care provider about any blood in your urine, even ifit is painless or the blood stops without treatment. Take vmur-kpg-mnxtuep and prescription medicines only as told by your health care provider. Drink enough fluid to keep your urine clear or pale yellow. This information is not intended to replace advice given to you by your health care provider. Make sure you discuss any questions you have with your health care provider. Document Released: 02/20/2006 Document Revised: 07/17/2019 Document Reviewed: 03/25/2017 [employer] Patient Education 2020 Infer. Follow Up Care 02/01/2021 14:02:07 With:KRZYSZTOF GUZMAN, David Pritchard, URL Address: [address] [place] [phone] When: Unknown [facility] Evaluation + Plan note No data available for this section [facility] Evaluation + Plan note Future Appointments Appointment Date:06/23/2023 09:15:00 AM Scheduled Provider:Nathan BLACK MD Location:[facility] Appointment Type:URO Office Visit [facility] evaluation + Plan note Future Appointments Appointment Date:07/28/2023 11:00:00 AM Scheduled Provider:Nathan BLACK MD Location:[facility] Appointment Type:URO Office Visit Diagnostic Tests Pending * Creatinine 06/30/[address] [facility] evaluation + Plan note Future Appointments Appointment Date:07/08/2024 01:15:00 PM Scheduled Provider:Nathan BLACK MD [facility] [facility] App[facility] Type:URO Office Visit [facility] evaluation noteNo assessment information available [facility] Work Phone: Evaluation note* Diagnosis HPV in female Screening for malignant neoplasm of cervix Screening for malignant neoplasm of the cervix documented in this encounter [facility] Diagnosis Screening mammogram, encounter for- Primary Encounter for gynecological examination without abnormal finding Encounter for screening for cervical cancer HPV in female Stress incontinence Female stress incontinence documented in this encounter [facility] Narrative - Reported* Type Description Date Medical History diabetes [facility] [employer] Other History general Narrative - Reported* Type Description Date Medical History diabetic [facility] [employer] Other Progress note No data available for this section [facility] Purpose Family History No Family History Records Found Relationship Condition Age at Onset Recorded Date/T nathen Not Specified Diabetes mellitus Unknown Advance Directives No Advanced Directives Records Found Advance Directive Response Recorded Date/ Time Advance Directives No January 8:23am Additional Source Comments INFORMATION SOURCE (unrecogn ized section and content) DATE CREATED AUTHOR 04/26/2021 [facility] dical Specialist DATE CREATED AUTHOR AUTHOR'S ORGANIZ ATION 09/10/2021 [facility] DATE CREATED AUTHOR AUTHOR'S ORGANIZ ATION 01/06/2023 [facility] DATE CREATED AUTHOR AUTHOR'S ORGANIZ ATION 07/10/2024 [facility] DATE CREATED AUTHOR AUTHOR'S ORGANIZ ATION 07/31/2024 [facility] d[facility] Specialists EPIC REASON FOR VISIT (unrecogniz ed section and content) Reason Comments repeat pap Reason Comments Repeat pap Patient denies any i ssues with breast urinary or bowels. Care Teams (unrecognized sec tion and content) Team Status: Inactive Member Role Status Dates David Allan MD Attending Provider Active Team Status: Inactive Member Role Status Dates Yoko Mcneal APRN BUSINESS RISK CONSULTANT-C Attending Provider A ctive Senior Javascript Developer Relationship Specialty Start Date End Date Unallocated, Los López MD [address] [place], [place] [address] [address] PCP - General Family Medicine 06/08/23 Senior Javascript Developer Relationship Specialty Start Date End Date Unallocated, Los López MD [address] [place] [id number] PCP - General Family Medicine 06/08/23 Goals (unrecognized section and content) Goals may be documented in a n alternate section FOR RECORDS PERTAINING TO PATIENTS WHO ARE OR HAVE BEEN ENROLLED IN A CHEMICAL DEPENDENCY/SUBSTANCEABUSE PROGRAM, SOME INFORMATION MAY BE OMITTED. This clinical summary was aggregated from multiple sources. Caution should be exercised in using it in the provision of clinical care. This summary normalizes information from multiple sources, and as a consequence, information in this document may materially change the coding, format and clinical context of patient data. In addition, data may be omitted in some cases. CLINICAL DECISIONS SHOULD BE BASED ON THE PRIMARY CLINICAL RECORDS. [facility]. provides no warranty or guarantee of the accuracy or completeness of information in this document.
== END 2024-09-04 10:13 | disposition home or self-care (01) ==
PROVIDERS: Visit Provider Urology
DX: N20.0 Calculus of kidney (principal)
CPT/HCPCS: 74018